=== PATIENT | male | born 1955 | race Caucasian/White ===

== ENCOUNTER → 2022-03-26 13:26 | Outpatient (CLI) | payer OTHER, SELFPAY ==
--- NOTE | ~2022-03-26 | XR_ITS ---
XR lumbar spine 2-3V DATE: 03/26/2022 13:57 INDICATION: Low back pain, sciatica TECHNIQUE: Standind AP, lateral, coned lateral lumbosacral COMPARISON: None FINDINGS: There is osteopenia. There is multi-level moderate to moderately severe degenerative disc disease of the lumbar and lumbos acral spine, most severe at L2-3. There is degenerative change at the apophyseal joints with no spondylolisthesis. The lumbar pedicles are intact. No fracture or bone destruction is detected. The included portions of the sacroiliac join ts are unremarkable. Abdominal aortic calcification without evidence of aneurysm. IMPRESSION: Osteopenia Multilevel degenerative disc disease and degenerative change at the apophyseal joints Reviewed, dictated and finalized at location A.
--- NOTE | ~2022-03-26 | XR_ITS ---
EXAM: XR knee LT 3V DATE: 03/26/2022 13:57 HISTORY: Chronic pain in left knee . COMPARISON: None available. FINDINGS: Normal mineralization. No fracture or dislocation. Loss of valgus alignment. Severe medial compartment narrowing, sclerosis, and subchondral cyst formation. Tricompartmental osteophytosis, se charity in the patellofemoral and medial compartments. Moderate volume joint fluid. IMPRESSION: Left knee osteoarthritis, severe in the patellofemoral and medial compartments. Moderate joint effusion. Reviewed, dictated and finalized at location K. IMPRESSION: Left knee osteoarthritis, severe in the patellofemoral and medial c ompartments. Moderate joint effusion.
== END ==
DX: M25.562 Pain in left knee (principal); G89.29 Other chronic pain; M85.88 Other specified disorders of bone density and structure, other site; M51.36 Other intervertebral disc degeneration, lumbar region; M17.12 Unilateral primary osteoarthritis, left knee; M25.462 Effusion, left knee
CPT/HCPCS: 72100; 73562

== ENCOUNTER 2025-01-21 12:09 | Emergency (ER) | payer BC, SELFPAY ==
--- NOTE | 2025-01-21 12:32 | ED.MALEGU ---
HPI - Male Genitourinary General Chief complaint: Urogenital-Male Stated complaint: Difficulty urinating-Hx enlarged prostate Time Seen by Provider: 01/21/25 12:30 Focused HPI: Patient is a 69-year-old male who presents to the ER with inability urinate. He reports the last time he was able to urinate was last night before he went to bed. Patient reports he has been trying to urinate since 3:00 a.m. this morning with no success. He endorses straining with urination in hopes to ?push the urine out but has only produced ?a few dribbles. Patient reports this morning he took an amoxicillin from a leftover previous prescription. He endorses a history of prostate issues and has a urologist. Patient endorses pain from bladder spasms at this time. GENERAL: Ill-appearing, well-nourished, and in mild distress d/t pain. HEAD: Normocephalic, atraumatic. CHEST: Clear to auscultation. ?No respiratory distress. HEART: Regular rate and rhythm.? NEURO: ?Alert and oriented x3. Patient screened in triage and initial orders placed.? ?Additional care and disposition to be based upon?diagnostic testing and treatment. Related Data Allergies Allergy/AdvReac Type Severity Reaction Status Date / Time peanut Allergy Unknown Swelling Ver[facility] 01/23/25 15:34 [facility] Past Medical History Medical History (Updated 01/24/25 @ 00:00 by Background Daemon) JARAMILLO (nonalcoholic steatohepatitis) Mixed hyperlipidemia Chronic GERD Calculus of ureter Benign essential hypertension Family History Family History (Updated 05/19/14 @ 07:13 by DOCTOR UNKNOWN) Father Family history of heart disease in male family member before age 55 Grandparent Family history of heart disease in male family member before age 55 Social History Social History Smoking status: Former smoker Second hand tobacco smoke exposure: Yes Smoking end date: 09/22/12 Alcohol intake: never Course Vital Signs Vital signs: Vital Signs Temperature 97.6 F 01/21/25 12:43 Pulse Rate 82 01/21/25 12:43 Respiratory Rate 16 01/21/25 12:43 Blood Pressure 202/125 H 01/21/25 12:43 Pulse Oximetry 98 01/21/25 12:43 Temperature 97.6 F 01/21/25 12:43 Pulse Rate 82 01/21/25 12:43 Respiratory Rate 16 01/21/25 12:43 Blood Pressure 202/125 H 01/21/25 12:43 Pulse Oximetry 98 01/21/25 12:43 MDM - Male Genitourinary Lab Data Labs: Lab Results 01/21/25 Range/Units 13:44 Urine Color Yellow (Yellow) Urine Appearance Clear (Clear) Urine pH 7.0 (5.0-9.0) Ur Specific [place] 1.016 (1.001-1.035) Urine Protein Trace (Negative) mg/dL Urine Glucose (UA) Negative (Negative) mg/dL Urine Ketones Negative (Negative) mg/dL Ur Blood (Man) 1+ H (Negative) Urine Nitrate Negative (Negative) Urine Bilirubin Negative (Negative) Urine Urobilinogen 0.2 (<2.0) mg/dL Leukocyte Esterase Rfl Negative (Negative) OMAR/UL Urine RBC 6-10 H (0-2) /hpf Urine WBC 0-5 (0-3) /hpf Ur Squamous Epith Cells None seen (Few) /hpf Urine Bacteria None seen /hpf Urine Casts 0-2 Discharge Plan Discharge Clinical Impression: BPH (benign prostatic hyperplasia), Acute retention of urine Patient Disposition: Home Condition: Improved Instructions: Antibiotic Form, Enlarged Prostate (BPH) (ED), Canseco Catheter Placement and Care (ED) Additional Instructions: follow up with urologist next week. Patient Language: Albanian Prescriptions: No Action Bystolic 5 mg tablet 5 mg PO DAILY Qty: 90 2RF Follow-up/Referrals: PHYSICIAN NOT ON STAFF,NONSTAFF [Non-Staff] -
[2025-01-21 12:43] VITALS: BP 202/125; PULSE 82; RESP 16; TEMP 36.4; O2SAT 98
[2025-01-21] MEDS: KETOROLAC (*BKC) 60 MG/2 ML VIAL IM (13:02)
--- NOTE | 2025-01-21 13:03 | PC.NURSE ---
patient to the bathroom at this time to attempt to provide a urine sample
--- NOTE | 2025-01-21 13:39 | ED.MALEGU ---
HPI - Male Genitourinary General Chief complaint: Urogenital-Male Stated complaint: Difficulty urinating-Hx enlarged prostate Time Seen by Provider: 01/21/25 12:30 History of Present Illness HPI Narrative: Pt not able to urinate since 0300 this morning. Pt eldon dysuiria or frequency prio to this. Pt on flomax but missed two days so not sure if that is cause. Pt has urologist in [facility]. Related Data Allergies Allergy/AdvReac Type Severity Reaction Status Date / Time peanut Allergy Unknown Swelling Verified 01/21/25 12:11 Review of Systems Review of Systems: All systems reviewed & are unremarkable except as noted in HPI and below PMFSH Family History Family History (Updated 05/19/14 @ 07:13 by DOCTOR UNKNOWN) Father Family history of heart disease in male family member before age 55 Grandparent Family history of heart disease in male family member before age 55 Social History Social History Smoking status: Former smoker Second hand tobacco smoke exposure: Yes Smoking end date: 09/22/12 Alcohol intake: never Exam Const: General: healthy appearing and no acute distress Nutritional Appearance: well nourished Limitations: no limitations Resp: Effort & Inspection: normal respiratory effort Auscultation: clear to auscultation bilaterally Cardio: Rate: regular rate Rhythm: regular rhythm GI: GI Palp: Yes Soft to palpation and Yes Tenderness to palpation present (GI) (suprapubis with distension) Auscultation: normal bowel sounds : General: Yes Bladder palpation abnormal distended and tender Course Vital Signs Vital signs: Vital Signs Temperature 97.6 F 01/21/25 12:43 Pulse Rate 82 01/21/25 12:43 Respiratory Rate 16 01/21/25 12:43 Blood Pressure 202/125 H 01/21/25 12:43 Pulse Oximetry 98 01/21/25 12:43 Temperature 97.6 F 01/21/25 12:43 Pulse Rate 82 01/21/25 12:43 Respiratory Rate 16 01/21/25 12:43 Blood Pressure 202/125 H 01/21/25 12:43 Pulse Oximetry 98 01/21/25 12:43 MDM - Male Genitourinary MDM Narrative Medical decision making narrative: pt unable to void. will attempt garcia. garcia placed easily per RN with good output ua neg. home with urology follow up next week. Lab Data Labs: Lab Results 01/21/25 Range/Units 13:44 Urine Color Yellow (Yellow) Urine Appearance Clear (Clear) Urine pH 7.0 (5.0-9.0) Ur Specific [place] 1.016 (1.001-1.035) Urine Protein Trace (Negative) mg/dL Urine Glucose (UA) Negative (Negative) mg/dL Urine Ketones Negative (Negative) mg/dL Ur Blood (Man) 1+ H (Negative) Urine Nitrate Negative (Negative) Urine Bilirubin Negative (Negative) Urine Urobilinogen 0.2 (<2.0) mg/dL Leukocyte Esterase Rfl Negative (Negative) OMAR/UL Urine RBC 6-10 H (0-2) /hpf Urine WBC 0-5 (0-3) /hpf Ur Squamous Epith Cells None seen (Few) /hpf Urine Bacteria None seen /hpf Urine Casts 0-2 Discharge Plan Discharge Clinical Impression: BPH (benign prostatic hyperplasia), Acute retention of urine Patient Disposition: Home Condition: Improved Instructions: Antibiotic Form, Enlarged Prostate (BPH) (ED), Garcia Catheter Placement and Care (ED) Additional Instructions: follow up with urologist next week. Patient Language: Italian Prescriptions: No Action Bystolic 5 mg tablet 5 mg PO DAILY Qty: 90 2RF Follow-up/Referrals: PHYSICIAN NOT ON STAFF,NONSTAFF [Non-Staff] -
[2025-01-21 13:59] LABS: Add Urine Microscopic? YES; Appearance Urine Clear (Clear); Bacteria Urine None Seen /hpf; Bilirubin Urine Negative (Negative); Blood Urine 1+ (Negative); Color Urine Yellow (Yellow); Glucose Urine UA Negative (Negative); Ketones Urine Negative (Negative); Leukocyte Esterase Ur Negative LEU/UL (Negative); Nitrate Urine Negative (Negative); Non Pathogenic Casts 0-2; Protein Urine Trace mg/dL (Negative); Specific Grav Ur 1.016 (1.001-1.035); Squamous Epithelial Cell Urine None Seen /hpf (Few); Urobilinogen Urine 0.2 mg/dL (<2.0); WBC Urine 0-5 /hpf (0-3)
--- OUTSIDE RECORDS SUMMARY | 2025-01-22 13:03 | XMS_ITS | Encounter Summary ---
Author Organization [facility] Healthcare Address [address] [place] [address] Care Team Providers Care Income Tax Preparer Name Role Phone No, Physician Primary Care Provider [phone] Heath Aleman Primary Care Provider [phone] Reason for Visit * Reason Onset Date Comments order 04/05/2024 Encounter Details Date Type Department Care Team (Late st Contact Info) Description 04/05/2024 Telephone [facility] [address] [facility] Advanced Medicine [address] [place] [address] Dianna Lutz MD [address] [facility] [address] [facility] [phone] [place] [address] order Social History Tobacco Use Types Packs/Day Years Used Date Smoking Tobacco: Never Smokeless Tobacco: Never AUDIT-C Answer Date Recorded Q1: How often do you have a drink containing alc ohol? Monthly or less 04/05/2024 Q2: How many drinks containi ng alcohol do you have on a typical day when you are drinking? 1 or 2 04/05/2024 Q3: How often do you have si x or more drinks on one occasion? Never 04/05/2024 Sex and Gender Information Value Date Recorded Sex Assigned at Not on file Legal Sex Male 4:30 AM PLUG WIRER Gender Identity Male 02/19/2024 3:53 AM CDT Sexual Orientation Straight 02/19/2024 3: 53 AM CDT documented as of this encounter Functional Status * Audit-C Score Answer Date of Assessment Author 1 04/05/2024 8:57 AM Js Sommer RN * Question Answer Date of Assessment Author Q1: How often do you have a drink containing alcohol? Monthly or less 04/05/2024 8:57 AM Mendy Sommer RN Q2: How many drinks containing alcohol do you have on a typical day when you are drinking? 1 or 2 04/05/2024 8:57 AM Mendy Sommer RN Q3: How often do you have six or more drinks on one occasion? Never 04/05/2024 8:57 AM Mendy Sommer RN documented as of this encounter Plan of Treatment Not on file documented as of this encounter Goals Goal Patient Goal Type Associated Problems Recent Progress Patient-Stated? Author CCM Chronic Pain Care Plan Chronic Care Management No change(09/07 12:35 PM PLUG WIRER) No Mendy Pope RN Note: Problem: Chronic Pain Goals: 1. Minimize further functional decline 2. Maximize quality of life 3. Control pain Strategies: - Activity/exercise program recommendation - Conservative stepwise pain medicine strategy with multi-disciplinary approach - Recommend healthy lifestyle strategies and compensatory methods as needed documented as of this encounter Visit Diagnoses Not on filedocumented in this encounter Care Teams Income Tax Preparer Relationship Specialty Start Date End Date No, Physician PCP - General 03/18/24 06/01/24 Heath Aleman PA [address] [address] PCP - General Emergency Medicine 06/02/24 documented as of this encounter
--- OUTSIDE RECORDS SUMMARY | 2025-01-22 13:03 | XMS_ITS | Encounter Summary ---
Author Organization [facility] Address [address] [place] [address] Care Team Providers Care Blow Molding Machine Operator Name Role Phone Manjinder Dixon MD Unavailable [phone] Fabian Major MD Unavailable Garfield Starr MD Unavailable [phone] Heath Aleman PA-C Primary Care Provider Reason for Visit * Reason Onset Date Comments MEDICATION REFILL 05/10/2022 Encounter Details Date Type Department Care Team (Late st Contact Info) Description 05/10/2022 Refill [facility] [address] [place] [address] Heath Aleman PA-C [address] [place] [phone] MEDICATION REFILL Social History Tobacco Use Types Packs/Day Years Used Date Smoking Tobacco: Former Cigars Smokeless Tobacco: Former Chew Alcohol Use Standard Drinks/Week Comments Yes 0 (1 standard drink = 0.6 oz pur e alcohol) social / rare AUDIT-C Answer Date Recorded Frequency of Alcohol Consumption Monthly or less 07/16/2019 Average Number of Drinks 1 or 2 019 Frequency of Binge Drinking Not on file 06/23 Sex and Gender Information Value Date Recorded Sex Assigned at Male 06/04/2021 7:34 PM CDT Legal Sex Male 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 hydroCHLOROthiazide (Hydrodiuril) 25 MG tablet 90 tablet 1 Sig: Take 1 (one) tablet by mouth once daily Allergies Allergen Reactions ??? Donald Inhibitors Cough ??? Peanuts [Peanut-Derived] Angioedema Last Refill:10/01/2021 Qty Dispense:90 # of Refills:1 Last OV:03/01/2022 Next OV:none documented in this encounter Plan of Treatment Upcoming Encounters Date Type Department Care Team (Late st Contact Info) Description 01/28/2025 10:30 AM CDT Office Visit [facility] - Urology [address] [place] [address] Rd [address] [place] [address] Kristen Goldberg APRN-DAY HABILITATION SPECIALIST [address] [facility] DEPT [place] [address] 01/28/2025 3:00 PM CDT Office Visit [facility] - Family Medicine [address] [place] [address], [place] [phone] Bina Luque APRN-DAY HABILITATION SPECIALIST [address] [place] [address] [place] [phone] 06/29/2025 10:30 AM CDT Office Visit [facility] - Urology [address] [place] [address] Rd [address] [place] [phone] Kristen Goldberg ED MANAGER-DAY HABILITATION SPECIALIST [address] [facility] DEPT [place] [address] documented as of this encounter Visit Diagnoses Diagnosis HTN (hypertension), benign Essential hypertension, benign documented in this encounter Care Teams Blow Molding Machine Operator Relationship Specialty Start Date End Date Heath Aleman PA-C [address] [facility] [address] [place] [address] PCP - General 11/04/19 [place] [address] [place] [address] 05/03/10 Fabian Major MD [address] [facility] [address] [place] [address] 05/03/10 Garfield Starr MD [address] [place] [address] 05/03/10 documented as of this encounter
--- OUTSIDE RECORDS SUMMARY | 2025-01-22 13:03 | XMS_ITS | Encounter Summary ---
Author Organization [facility] Address [address] [place] [place] [address] Care Team Providers Care Marine Structural Designer Name Role Phone Manjinder Dixon MD Unavailable [phone] Fabian Major MD Unavailable [phone] Garfield Starr MD Unavailable Heath Aleman PA-C Primary Care Provider Reason for Visit * Reason Onset Date Comments MEDICATION REFILL 04/14/2023 Encounter Details Date Type Department Care Team (Late st Contact Info) Description 04/14/2023 Refill [facility] - [facility] Medicine [address] [place] [address] Heath Aleman PA-C [address] [place] [phone] MEDICATION REFILL Social History Tobacco Use Types [...] PM CDT Legal Sex Male 6:35 AM BAND BUILDER Gender Identity Male 06/04/2021 7:34 PM CDT Sexual Orientation Straight 06/04/2021 7: 34 PM CDT documented as of this encounter Plan of Treatment Upcoming Encounters Date Type Department Care Team (Late st Contact Info) Description 01/28/2025 10:30 AM CDT Office Visit [facility]rology [facility] [address] [place] [phone] Kristen Goldberg, RENAL MEDICINE SPECIALIST-LINE SERVICE SUPERVISOR [address] [facility] [place] [place] [address] 01/28/2025 3:00 PM CDT Office Visit [facility] - [address], [facility] [place] [phone] Bina Luque, RENAL MEDICINE SPECIALIST-LINE SERVICE SUPERVISOR [facility] [phone] 06/29/2025 10:30 AM CDT Office Visit [facility] - Urology [facility] [address] [place] [phone] Kristen Goldberg, RENAL MEDICINE SPECIALIST-LINE SERVICE SUPERVISOR [address] [facility] [place] [place] [address] documented as of this encounter Visit Diagnoses Diagnosis Mixed hyperlipidemia documented in this encounter Care Teams Marine Structural Designer Relationship Specialty Start Date End Date Heath Aleman PA-C [address] [facility] [address] [place] [address] PCP - General 11/04/19 [place] [address] [place] [address] 05/03/10 Fabian Major MD [address] [address] 05/03/10 Garfield Starr MD [address] [place] [address] 05/03/10 documented as of this encounter
--- OUTSIDE RECORDS SUMMARY | 2025-01-22 13:04 | XMS_ITS | Referral Summary ---
Author Organization [facility] Address [address] [place] [address] Care Team Providers Care Catering Coordinator Name Role Phone Heath Aleman Primary Care Provider [phone] Encounters Date Type Department Care Team Description 01/19/2025 Orders Only [facility] [address] [place] [address] [address] [place] [phone] Narayan Mims MD Spinal stenosis of lumbar region with neurogenic claudication 01/19/2025 Orders Only [facility] [address] [place] [address] [address] [place] [phone] Narayan Mims MD Spinal stenosis of lumbar region with neurogenic claudication (Primary Dx) 01/19/2025 2:40 PM CDT Office Visit [facility] [address] [place] [address] Office [facility] [address] [phone] Narayan Mims MD Spinal stenosis of lumbar region with neurogenic claudication (Primary Dx) 01/12/2025 11:00 AM CDT - 01/12/2025 11:59 PM CDT Hospital Encounter [id number] [address] [place] [phone] Left knee pain, unspecified chronicity Discharge Disposition: Discharge to home or self care 01/12/2025 11:30 AM CDT Office Visit [facility] [address] [place] [address] Office [facility] [address] [phone] Federico Coelho MD Left knee pain, unspecified chronicity (Primary Dx); Hip pain, bilateral; Chronic pain of left knee; Primary osteoarthritis of left knee from Last 3 Months Allergies Active Allergy Reactions Criticality Noted Date Comments Donald Inhibitors Cough Low 07/16/2019 Peanut Medications famotidine (PEPCID) oral suspension 40 mg/5 mL Take 1 tablet by mouth as directed Active sbpvrfxx-tvj-wuz anatoliy sulfate 4.5 mg iron powder in packet Take 1 tablet by mouth daily Active omega-3 fatty acids-fish oil 300-1,000 mg capsule Take 1 capsule (1 g total) by mouth as directed Active hydroCHLOROthiaz dorota (HYDRODIURIL) 25 mg tablet Take 1 tablet (25 mg total) by mouth daily Active atenoloL (TENORMIN) 50 mg tablet Take 1 tablet (50 mg total) by mouth daily Active betamethasone dipropionate (DEL-BETA) 0.05 % cream Apply topically 2 (two) times a day 1 Active rosuvastatin (CRESTOR) 10 mg tablet Take 1 tablet (10 mg total) by mouth daily Active tamsulosin (FLOMAX) 0.4 mg extended release capsule TAKE 1 CAPSULE BY MOUTH ONCE DAILY AT THE SAME TIME EVERY DAY AFTER A MEAL Active meloxicam (MOBIC) 15 mg tabletIndication s:osteoarthrtis Take 1 tablet (15 mg total) by mouth daily 30 tablet 4 Active Additional Information Patient not taking.Reported on 09/07/2024 acetaminophen-as pirin-caffeine (EXCEDRIN MIGRAINE) 250-250-65 mg per tablet Take 6 tablets by mouth every 6 (six) hours as needed Active Active Problems Problem Noted Date Diagnosed Date Spinal stenosis of lumbar re gion with neurogenic claudication 05/28/2024 Spondylolisthesis 04/05/2024 Benign prostatic hyperplasia 05/31/2009 Overview (04/05/2024): IMO Update 03/22/2017 Elevated PSA 05/31/2009 Essential hypertension 05/29/2009 Overview (04/05/2024): DOS (diffuse esophageal spasm) 05/29/2009 GERD (gastroesophageal reflux disease) 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 Monthly or less 07/05/2024 Q2: How many drinks containi ng alcohol do you have on a typical day when you are drinking? 1 or 2 07/05/2024 Q3: How often do you have si x or more drinks on one occasion? Never 07/05/2024 Hunger Vital Sign Answer Date Recorded Within the past 12 months, y ou worried that your food would run out before you got the money to buy more. Never true 05/28/20 24 Within the past 12 months, t he food you bought just didn't last and you didn't have money to get more. Never true 05/28/2024 Sex and Gender Information Value Date Recorded Sex Assigned at Not on file Legal Sex Male 4:30 AM [employer] Gender Identity Male 02/19/2024 3:53 AM CDT Sexual Orientation Straight 02/19/2024 3: 53 AM CDT Last Filed Vital Signs Vital Sign Reading Time Taken Comments Blood Pressure 146/81 09/07/2024 1:46 PM [employer] Pulse 59 09/07/2024 1:46 PM [employer] Temperature 36.5 C (97.7 F) 09/07/2024 12:33 PM [employer] Respiratory Rate 18 09/07/2024 1:46 PM [employer] Oxygen Saturation 96% 09/07/2024 1:46 PM [employer] Inhaled Oxygen Concentration - - Weight 108.9 kg (240 lb) 01/19/2025 2:48 PM CDT Height 175.3 cm (5' 9 ) 01/19/2025 2:48 PM CDT Body Mass Index 35.44 01/19/2025 2:48 PM CDT Plan of Treatment Not on file Goals Goal Patient Goal Type Associated Problems Recent Progress Patient-Stated? Author CCM Chronic Pain Care Plan Chronic Care Management No change(09/07 12:35 PM [employer]) Mendy Alfaro RN Note: Problem: Chronic Pain Goals: 1. Minimize further functional decline 2. Maximize quality of life 3. Control pain Strategies: - Activity/exercise program recommendation - Conservative stepwise pain medicine strategy with multi-disciplinary approach - Recommend healthy lifestyle strategies and compensatory methods as needed Procedures Procedure Name Priority Date/Time Associated Diagnosis Comments XR KNEE LEFT 4 OR MORE VIEWS Schedule Routine, Read Routine (OP Routine) 01/12/2025 11:18 AM CDT Left knee pain, unspecified chronicity from Last 3 Months Results * XR Knee Left 4 or More Views (01/12/2025 11:18 AM CDT) Anatomical Region Laterality Modality Lower Extremities, Knee Left Computed Radiography 01/12/2025 11:3 9 AM CDT Impressions 01/12/2025 11:39 AM CDT 1. Severe medial compartment predominant tricompartmental left knee osteoarthritis. Electronically signed by: Modesto Knapp M.D. Narrative 01/12/2025 11:39 AM CDT EXAMINATION: XR KNEE LEFT 4 OR MORE VIEWS HISTORY: left knee pain FINDINGS: 4 view examination of the left knee is read without comparison. There is severe medial compartment predominant tricompartmental osteoarthritis. Small joint effusion. No fracture or dislocation. There are intra-articular loose bodies in the posterior aspect of the joint. Atherosclerotic vascular calcifications. Procedure Note Modesto Queen MD - 01/12/2025 EXAMINATION: XR KNEE LEFT 4 OR MORE VIEWS HISTORY: left knee pain FINDINGS: 4 view examination of the left knee is read without comparison. There is severe medial compartment predominant tricompartmental osteoarthritis. Small joint effusion. No fracture or dislocation. There are intra-articular loose bodies in the posterior aspect of the joint. Atherosclerotic vascular calcifications. IMPRESSION: 1. Severe medial compartment predominant tricompartmental left knee osteoarthritis. Electronically signed by: Sam Shaikh.D. Federico Coelho MD IMG XR PROCEDURES Final R esult from Last 3 Months Insurance ANTHEM ACCESS CHOICE ANTHEM ACCESS CHOICE Care Teams Catering Coordinator Relationship Specialty Start Date End Date Heath Aleman PA [address] [place] [address] PCP - General Emergency Medicine 06/02/24
--- OUTSIDE RECORDS SUMMARY | 2025-01-22 13:04 | XMS_ITS | Clinical Summary ---
Author Organization [facility] Address [address] [place] [address] Care Team Providers Care Coil Wrapper Name Role Phone Manjinder Dixon MD Unavailable [phone] Fabian Major MD Unavailable [phone] Garfield Starr MD Unavailable [phone] Heath Aleman PA-C Primary Care Provider Source Comments [facility],non-owned Affiliates and Associated Physician Practices is amultiple site organization consisting of ambulatory clinics and hospital sitesin [place], [place], [place] and [place]. This disclosure is being madepursuant to the Care Everywhere program and may not contain all information available regarding this patient. Last updated 18.[facility] Allergies Active Allergy Reactions Criticality Noted Date Comments Donald Inhibitors Cough 07/16/2019 Peanut-Derived Angioedema High 11/04/2019 Medications * Be aware that medications may not be up to date on this document. Alwaysverify current medications with the patient. [place]-3 Fatty Acids (FISH OIL PO) Take 1 capsule by mouth as directed Active Famotidine (PEPCID PO) Take 1 tablet by mouth as directed Active betamethasone dipropionate (DIPROSONE) 0.05 % creamIndications: Flexural eczema Apply to affected area 2 times daily 15 g 2 021 Active Ferrous Sulfate (IRON PO) Take 1 tablet by mouth once daily Active atenolol (Tenormin) 50 MG tabletIndications :HTN (hypertension), benign Take 1 (one) tablet by mouth once daily 90 tablet 4 024 Active hydroCHLOROthiazi de (Hydrodiuril) 25 MG tabletIndications :HTN (hypertension), benign Take 1 (one) tablet by mouth once daily 90 tablet 4 024 Active rosuvastatin (Crestor) 10 MG tabletIndications :Mixed hyperlipidemia Take 1 (one) tablet by mouth once daily 90 tablet 4 024 Active semaglutide (Wegovy) 0.25 MG/0.5ML penIndications:BM I 32.0-32.9,adult,H TN (hypertension), benign Inject 0.25 (one-quarter) mg subcutaneously every 7 days 2 mL 024 Active tamsulosin (Flomax) 0.4 MG capsule TAKE 1 CAPSULE BY MOUTH ONCE DAILY AT THE SAME TIME EVERY DAY AFTER A MEAL 30 capsule 025 Active tamsulosin (Flomax) 0.4 MG capsule TAKE 1 CAPSULE BY MOUTH ONCE DAILY AT THE SAME TIME EVERY DAY AFTER A MEAL 30 capsule 025 2024 Discontinued Active Problems Problem Noted Date Diagnosed Date Elevated PSA 05/31/2009 Benign prostatic hyperplasia 05/31/2009 Overview (03/15/2017): IMO Update 03/22/2017 Mixed hyperlipidemia 05/29/2009 HDL lipoprotein deficiency 05/29/2009 Essential hypertension 05/29/2009 Overview (06/22/2015): GERD (gastroesophageal reflux disease) 9 DOS (diffuse esophageal spasm) 05/29/2009 Encounters Date Type Department Care Team Description 01/21/2025 Telephone [facility] [address] [facility] [facility] [place] [phone] Wilma Salazar, RN Urinary Retention 01/10/2025 Refill [facility] [address] [place] [phone] Kristen Goldberg APRN-TEMPORARY OFFICE ASSISTANT Refill Request 12/10/2024 Refill [facility] [address] [place] [address] Kristen Goldberg CONCRETE PRODUCTS DISPATCHER-TEMPORARY OFFICE ASSISTANT Refill Request 12/08/2024 Travel 11/08/2024 Refill [facility] [address] [place] [address] Kristen Goldberg CONCRETE PRODUCTS DISPATCHER-TEMPORARY OFFICE ASSISTANT Refill Request from Last 3 Months Immunizations Immunization Administration Dates Next Due Covid Healionics primary monoval ent 12+ yr 0.3mL Purple cap 08/20/2021,12/14/2020,11/16/2020 TDAP (7yrs+) 11/04/2016 TDAP, HISTORIC VACCINE 08/16/2022 Zoster Hzv Vacc Recombinant Inj Im 02/08/2023, Family History Medical History Relation Name Comments CAD (Coronary Artery Disease) Father Hyperlipidemia Father CAD (Coronary Artery Disease) Maternal Grandfather Hyperlipidemia Mother Hypertension Mother Lymphoma Mother CAD (Coronary Artery Disease) Paternal Grandfather Brain Tumor Sister acoustic neurom a Relation Name Status Comments Brother 1 Alive Brother 2 Alive Father Maternal Grandfather Maternal Grandmother Mother Paternal Grandfather Paternal Grandmother Sister Alive Social History Tobacco Use Types Packs/Day Years Used Date Smoking Tobacco: Former Cigars Smokeless Tobacco: Former Chew Tobacco Cessation:Counseling Given: Not Answered Alcohol Use Standard Drinks/Week Comments Yes 0 (1 standard drink = 0.6 oz pur e alcohol) social / rare AUDIT-C Answer Date Recorded Frequency of Alcohol Consumption Monthly or less 07/16/2019 Average Number of Drinks 1 or 2 019 Frequency of Binge Drinking Not on file 06/23 PHQ-2 Answer Date Recorded Patient Health Questionnaire-2 Score 0 01/03/2025 Sex and Gender Information Value Date Recorded Sex Assigned at Male 06/04/2021 7:34 PM CDT Legal Sex Male 6:35 AM MICROBIOLOGICAL LABORATORY TECHNICIAN Gender Identity Male 06/04/2021 7:34 PM CDT Sexual Orientation Straight 06/04/2021 7: 34 PM CDT Last Filed Vital Signs Vital Sign Reading Time Taken Comments Blood Pressure 130/74 10/21/2024 11:43 AM MICROBIOLOGICAL LABORATORY TECHNICIAN Pulse 70 10/21/2024 11:43 AM MICROBIOLOGICAL LABORATORY TECHNICIAN Temperature 37.1 C (98.7 F) 10/21/2024 11:43 AM MICROBIOLOGICAL LABORATORY TECHNICIAN Respiratory Rate 16 04/21/2024 8:12 AM CDT Oxygen Saturation 93% 10/21/2024 11: 43 AM MICROBIOLOGICAL LABORATORY TECHNICIAN Inhaled Oxygen Concentration - - Weight 109.5 kg (241 lb 6.4 oz) 025 11:43 AM MICROBIOLOGICAL LABORATORY TECHNICIAN Height 175.3 cm (5' 9 ) 10/21/2024 11:4 3 AM MICROBIOLOGICAL LABORATORY TECHNICIAN Body Mass Index 35.65 10/21/2024 11:43 AM MICROBIOLOGICAL LABORATORY TECHNICIAN Plan of Treatment Upcoming Encounters Date Type Department Care Team (Late st Contact Info) Description 01/28/2025 10:30 AM CDT Office Visit [facility] - [facility] [address] [place] [address] Kristen Goldberg CONCRETE PRODUCTS DISPATCHER-TEMPORARY OFFICE ASSISTANT [facility] [facility] [place] [address] 01/28/2025 3:00 PM CDT [facility] [address] [place] [phone] Bina Luque APRN-TEMPORARY OFFICE ASSISTANT [address] [place] [phone] 06/29/2025 10:30 AM CDT Office Visit [facility] [address] [place] [phone] Kristen Goldberg, CONCRETE PRODUCTS DISPATCHER-TEMPORARY OFFICE ASSISTANT [address] [facility] [place] [address] Health Maintenance Due Date Last Done Comments COLOGUARD (AGES 45-75) - COLON CA SCREENING 1955 CT COLONOGRAPHY - COLON CA SCREENING 1955 FIT - COLON CA SCREENING 1955 FLEX SIG - COLON CA SCREENING 1955 PNEUMOCOCCAL VACCINE 50+ (1 of 1 - PCV) 2005 COVID-19 VACCINE (4 - season) 2024 08/20/2021, 12/14/2020, 11/16/2020 DEPRESSION SCREENING 09/22/2024 06/11/2024, 05/06/2023, 08/25/2020 INFLUENZA VACCINE (Season Ended) 2025 SCREENING FOR DIABETES 05/21/2026 , 05/21/2023, 03/14/2022, Additional history exists Respiratory Syncytial Virus (RSV) Vaccine Pt: or over 60 yrs (1 - 1-dose 75+ series) 2030 COLON MONITORING 10/02/2030 10/02/2020, 10/02/2020 COLONOSCOPY - COLON CA SCREENING 10/02/2030 10/02/2020, 10/02/2020, 03/24/2008 Colorectal Cancer Screening 10/02/2030 DTAP/TDAP/TD VACCINES (3 - Td or Tdap) 08/16/2032 08/16/2022, 11/04/2016 HEPATITIS C SCREENING Completed 04/18/2021, 021 ZOSTER VACCINE Completed 02/08/2023, 08/16/2022 AAA SCREENING Completed 05/30/2023 HEPATITIS B VACCINE Aged Out No longe r eligible based on patient's age to complete this topic HIB VACCINE Aged Out No longer eligi ble based on patient's age to complete this topic HPV VACCINE Aged Out No longer eligi ble based on patient's age to complete this topic MENINGOCOCCAL (Group B) VACCINE SHARED DECISION-MAKING Aged Out No longer eligible based on patient's age to complete this topic MENINGOCOCCAL GROUPS A/C/Y/W VACCINE Aged Out No longer eligible based on patient's age to complete this topic Procedures Procedure Name Priority Date/Time Associated Diagnosis Comments US AAA SCREENING Routine 05/30/2023 9:4 5 AM CDT Encounter for abdominal aortic aneurysm (AAA) screening COMPREHENSIVE METABOLIC PANEL Routine 05/21/2023 9:52 AM CDT HTN (hypertension), benign HEPATITIS C AB W/RFLX TO HCV RNA QN PCR 04/18/2021 3:37 PM CDT ENDOSCOPY, COLON, SCREENING Routine 10/02/2020 7:38 AM MICROBIOLOGICAL LABORATORY TECHNICIAN from Last 3 Months or Most Recently Relevant to Health Maintenance Results * US AAA SCREENING (05/30/2023 9:45 AM CDT) Anatomical Region Laterality Modality Abdomen Ultrasound 05/30/2023 9:29 AM CDT Impressions 05/30/2023 10:56 AM CDT IMPRESSION: No evidence of abdominal aortic aneurysm. > Dictated by Connie Claros MD (vice president risk management). IStephan have personally reviewed and interpreted this examination/study. > Interpreting Provider: Stephan Bragg on 05/30/2023 10:56 AM Narrative 05/30/2023 10:56 AM CDT PROCEDURE: US AAA SCREENING DATE/TIME OF EXAM: 05/30/2023 8:55 AM CLINICAL INFORMATION: None relevant/not provided if blank. Indication: Z13.6: Encounter for abdominal aortic aneurysm (AAA) screening COMPARISON: None. FINDINGS: Proximal abdominal aorta: 1.8 cm AP x 2.5 cm transverse Mid abdominal aorta: 1.2 x 2.1 cm Distal abdominal aorta: 1.4 x 1.7 cm Right common iliac artery: 1.1 x 1.2 mm Left common iliac artery: 1.2 x 1.2 mm There is no evidence of abdominal aortic or common iliac artery aneurysm. The abdominal aorta and common iliac arteries are patent. Hyperechoic foci in the abdominal aorta and proximal iliac arteries are not observed. Procedure Note Stephan Bragg MD - 05/30/2023 PROCEDURE: US AAA SCREENING DATE/TIME OF EXAM: 05/30/2023 8:55 AM CLINICAL INFORMATION: None relevant/not provided if blank. Indication: Z13.6: Encounter for abdominal aortic aneurysm (AAA)screening COMPARISON: None. FINDINGS: Proximal abdominal aorta: 1.8 cm AP x 2.5 cm transverse Mid abdominal aorta: 1.2 x 2.1 cm Distal abdominal aorta: 1.4 x 1.7 cm Right common iliac artery: 1.1 x 1.2 mm Left common iliac artery: 1.2 x 1.2 mm There is no evidence of abdominal aortic or common iliac arteryaneurysm. The abdominal aorta and common iliac arteries are patent. Hyperechoicfoci in the abdominal aorta and proximal iliac arteries are not observed. IMPRESSION: No evidence of abdominal aortic aneurysm. > Dictated by Connie Claros MD (vice president risk management). I, Stephan Bragg have personally reviewed and interpreted this examination/study. > Interpreting Provider: Stephan Bragg on 05/30/2023 10:56 AM us Heath Aleman PA-C US ORDERABLES Final Result * (ABNORMAL) COMPREHENSIVE METABOLIC PANEL (05/21/2023 9:52 AM CDT) Glucose 111(H) 65 - 99 mg/dL [facility] Comment: Fasting reference interval For someone without known diabetes, a glucose value between 100 and 125 mg/dL is consistent with prediabetes and should be confirmed with a follow-up test. BUN 18 7 - 25 mg/dL [facility] Creatinine 1.46(H) 0.70 - 1.35 mg/dL [facility] eGFR by Cystatin C 52(L) > OR = 60 mL/min/1.7 3m2 [facility] BUN/Creatinine Ratio 12 6 - 22 (calc) [facility] Sodium 141 135 - 146 mmol/L [facility] Potassium 4.2 3.5 - 5.3 mmol/L [facility] Chloride 101 98 - 110 mmol/L [facility] CO2 33(H) 20 - 32 mmol/L [facility] Calcium 10.0 8.6 - 10.3 mg/dL [facility] Protein Total 7.0 6.1 - 8.1 g/dL [facility] Albumin 4.6 3.6 - 5.1 g/dL [facility] Globulin Total 2.4 1.9 - 3.7 g/dL (calc) [facility] Albumin/Globulin Ratio 1.9 1.0 - 2.5 (calc) [facility] Bilirubin Total 0.5 0.2 - 1.2 mg/dL [facility] Alkaline Phosphatase 61 35 - 144 U/L [facility] AST 39(H) 10 - 35 U/L [facility] ALT 56(H) 9 - 46 U/L [facility] Comment: Test Performed at: [facility] [address] [facility] [place] [address] SELWYN MCKENZIE MD Blood BLOOD SPECIMEN / Unknown 05/21/2023 9:52 AM CDT 05/21/2023 9:55 AM CDT Heath Aleman PA-C LAB - CHEMISTRY ORDERA BLES Final Result Performing Organization Address [facility] de Phone Number [facility] [address] [place] [address] * HEPATITIS C AB W/RFLX TO HCV RNA QN PCR (04/18/2021 3:37 PM CDT) Hepatitis C Antibody NON-REACTI VE NON-REACT MACKENZIE [facility] Signal to Cut-Off 0.02 <1.00 [facility] Comment: HCV antibody was non-reactive. There is no laboratory evidence of HCV infection. In most cases, no further action is required. However, if recent HCV exposure is suspected, a test for HCV RNA (test code 87438) is suggested. For additional information please refer to http://education.Green Clean/faq/YTK02p0 (This link is being provided for informational/ educational purposes only.) REPORT COMMENT: FASTING:YES Test Performed at: [facility] [address] [place] [address] KANG LAYTON DO,MPH 04/18/2021 3:37 PM CDT 04/18/2021 3:38 PM CDT Heath Aleman PA-C LAB - CHEMISTRY ORDERA BLES Final Result Performing Organization Address [facility] Co de Phone Number [facility] [address] [place] [address] * ENDOSCOPY, COLON, SCREENING (10/02/2020 7:38 AM MICROBIOLOGICAL LABORATORY TECHNICIAN) Report Endoscopy POC Endoscopy Department Report _ Patient Name: Kang Jones Procedure Date: 10/02/2020 7:38 AM Date of : 1955 Classification: Outpatient Gender: Male Ethnicity: Not or Race: White _ Providers: Ramana Barry MD Referring MD: Richard Hendrix MD Procedure: Colonoscopy Indications: Screening for colorectal malignant neoplasm Medications: See the Anesthesia note for documentation of the administered medications Patient Profile: 65M w/ limited PMH, here for CRCS. Description of Procedure: Pre-Anesthesia Assessment: Prior to the procedure, a History and Physical was performed, and patient medications and allergies were reviewed. The patient's tolerance of previous anesthesia was also reviewed. The risks and benefits of the procedure and the sedation options and risks were discussed with the patient. All questions were answered, and informed consent was obtained. Prior Anticoagulants: The patient has taken no previous anticoagulant or antiplatelet agents. ASA Grade Assessment: II - A patient with mild systemic disease. After reviewing the risks and benefits, the patient was deemed in satisfactory condition to undergo the procedure. After I obtained informed consent, the scope was passed under direct vision. Throughout the procedure, the patient's blood pressure, pulse, and oxygen saturations were monitored continuously. The [id number]-[id number] was introduced through the anus and advanced to the cecum, identified by appendiceal orifice and ileocecal valve. The colonoscopy was performed without difficulty. The patient tolerated the procedure well. The quality of the bowel preparation was evaluated using the BBPS ([place] Bowel Preparation Scale) with scores of: Right Colon = 2 (minor amount of residual staining, small fragments of stool and/or opaque liquid, but mucosa seen well), Transverse Colon = 3 (entire mucosa seen well with no residual staining, small fragments of stool or opaque liquid) and Left Colon = 3 (entire mucosa seen well with no residual staining, small fragments of stool or opaque liquid). The total BBPS score equals 8. The quality of the bowel preparation was fair. Findings: Skin tags and non-bleeding external hemorrhoids were found on perianal exam. Medium sized non-bleeding internal hemorrhoids were found during retroflexion. The exam was otherwise without abnormality through to the cecum. Estimated Blood Loss: Estimated blood loss: None. Complications: No immediate complications. Impression: - Preparation of the colon was fair. - Perianal skin tags, medium sized non-bleeding external and internal hemorrhoids present. - The examination was otherwise normal. Moderate Sedation: MAC Recommendation: - Resume previous diet. - Continue present medications. - Consider repeat Colonoscopy in 5 years for surveillance given fair prep quality. - Patient has a contact number available for emergencies. The signs and symptoms of potential delayed complications were discussed with the patient. Return to normal activities tomorrow. Written discharge instructions were provided to the patient. Attending Participation: I personally performed the entire procedure. Procedure Code(s): --- Professional --- G0121, Colorectal cancer screening; colonoscopy on individual not meeting criteria for high risk Diagnosis Code(s): --- Professional --- Z12.11, Encounter for screening for malignant neoplasm of colon K64.8, Other hemorrhoids K64.4, Residual hemorrhoidal skin tags CPT copyright 2019 [employer]. All rights reserved. The codes documented in this report are preliminary and upon emt intermediate review may be revised to meet current compliance requirements. Ramana Barry MD 10/02/2020 8:37:23 AM Note Initiated On: 10/02/2020 7:38 AM Number of Addenda: [address] [address] [facility] 10/02/2020 7:38 AM MICROBIOLOGICAL LABORATORY TECHNICIAN us Ramana Barry MD GI PROCEDURE ORDERAB LES Edited Result - Final [facility] from Last 3 Months or Most Recently Relevant to Health Maintenance Care Teams Coil Wrapper Relationship Specialty Start Date End Date Heath Aleman PA-C [address] [facility] [address] [place] [phone] PCP - General 11/04/19 [place] [address] [place] [address] 05/03/10 Fabian Major MD [address] [facility] [address] [place] [address] 05/03/10 Garfield Starr MD [address] [place] [address] 05/03/10
--- OUTSIDE RECORDS SUMMARY | 2025-01-22 13:04 | XMS_ITS | Clinical Summary ---
Author Organization [facility] Address [address] [place] [address] Care Team Providers Care Adjunct Philosophy Faculty Name Role Phone Heath Aleman Primary Care Provider [phone] Allergies Active Allergy Reactions Criticality Noted Date Comments Donald Inhibitors Cough Low 07/16/2019 Peanut Medications famotidine (PEPCID) oral suspension 40 mg/5 mL Take 1 tablet by mouth as directed Active oporljrd-azh-syd anatoliy sulfate 4.5 mg iron powder in [...] HDL lipoprotein deficiency 05/29/2009 Mixed hyperlipidemia 05/29/2009 Encounters Date Type Department Care Team Description 01/19/2025 2:40 PM CDT Office Visit [facility] [address] [place] [address] [phone] Narayan Mims MD Spinal stenosis of lumbar region with neurogenic claudication (Primary Dx) 01/19/2025 Orders Only [facility] [address] [place] [phone] Narayan Mims MD Spinal stenosis of lumbar region with neurogenic claudication 01/19/2025 Orders Only [facility] [address] [place] [phone] Narayan Mims MD Spinal stenosis of lumbar region with neurogenic claudication (Primary Dx) 01/12/2025 11:30 AM CDT Office Visit [facility] [address] [place] [phone] Federico Coelho MD Left knee pain, unspecified chronicity (Primary Dx); Hip pain, bilateral; Chronic pain of left knee; Primary osteoarthritis of left knee 01/12/2025 11:00 AM CDT - 01/12/2025 11:59 PM CDT Hospital Encounter [id number] [address] [facility] [address] [place] [phone] Left knee pain, unspecified chronicity Discharge Disposition: Discharge to home or self care from Last 3 Months Immunizations Immunization Administration Dates Next Due Pfizer SARS-CoV-2 Monovalent Vaccination (12+ Yrs) PURPLE 12/14/2020,11/16/2020 Surgical History Surgery Date Site/Laterality Comments HAND SURGERY 09/22/1980 - 09/21/1981 Left Medical History Medical History Date Comments Hypertension Acid reflux Kidney stones Social History Tobacco Use Types Packs/Day Years [...] on file Legal Sex Male 4:30 AM WALLPAPER SCRAPER Gender Identity Male 02/19/2024 3:53 AM CDT Sexual Orientation Straight 02/19/2024 3: 53 AM CDT Obstetrics History Last Filed Vital Signs Vital Sign Reading Time Taken Comments Blood Pressure 146/81 09/07/2024 1:46 PM WALLPAPER SCRAPER Pulse 59 09/07/2024 1:46 PM WALLPAPER SCRAPER Temperature 36.5 C (97.7 F) 09/07/2024 12:33 PM WALLPAPER SCRAPER Respiratory Rate 18 09/07/2024 1:46 PM WALLPAPER SCRAPER Oxygen Saturation 96% 09/07/2024 1:46 PM WALLPAPER SCRAPER Inhaled Oxygen Concentration - - Weight 108.9 kg (240 lb) 01/19/2025 2:48 PM CDT Height 175.3 cm (5' 9 ) 01/19/2025 2:48 PM CDT Body Mass Index 35.44 01/19/2025 2:48 PM CDT Plan of Treatment Health Maintenance Due Date Last Done Comments Colon Cancer Screening-Colonoscopy 1955 Depression Screening 1955 Fall Risk Assessment 1955 Hepatitis C Screening 1955 Prostate Cancer Screening-PSA 1955 Hepatitis B Screening 1973 Pneumococcal vaccine 65+ (1 of 1 - PCV) 2005 Well Visit 65+ 2020 Covid-19 Vaccine ( - 2023- season) 2024 08/20/2021, 12/14/2020, 11/16/2020 Influenza Vaccine (Season Ended) 2025 DTaP/Tdap/Td Vaccine (3 - Td or Tdap) 08/16/2032, 11/04/2016 Zoster Vaccine Completed 02/08/2023, 08/16/2022 Goals Goal Patient Goal Type Associated Problems Recent Progress Patient-Stated? Author CCM Chronic Pain Care Plan Chronic Care Management No change(09/07 12:35 PM WALLPAPER SCRAPER) No Mendy Pope, [place] Note: Problem: Chronic Pain Goals: 1. Minimize [...] osteoarthritis. Electronically signed by: Modesto Knapp M.D. Federico Coelho MD IMG XR PROCEDURES Final R esult from Last 3 Months Insurance [employer] Care Teams Adjunct Philosophy Faculty Relationship Specialty Start Date End Date Heath Aleman PA [address] [facility] [address] [place] [address] PCP - General Emergency Medicine 06/02/24
--- OUTSIDE RECORDS SUMMARY | 2025-01-22 14:13 | XMS_ITS | Referral Summary ---
Author Organization [facility] Address [address] [place] [address] Care Team Providers Care Senior Infrastructure Architect Name Role Phone Heath Aleman Primary Care Provider [phone] Encounters Date Type Department Care Team Description 01/19/2025 Orders Only [facility] Neurosurgery [address] [place] [address] [place] [phone] Narayan Mims MD Spinal stenosis of lumbar region with neurogenic claudication 01/19/2025 Orders Only [facility] Neurosurgery [address] [place] [address] [place] [phone] Narayan Mims MD Spinal stenosis of lumbar region with neurogenic claudication (Primary Dx) 01/19/2025 2:40 PM CDT Office Visit [facility] Neurosurgery [address] [place] [address] Office [facility] [address] [address] Narayan Mims MD Spinal stenosis of lumbar region with neurogenic claudication (Primary Dx) 01/12/2025 11:00 AM CDT - 01/12/2025 11:59 PM CDT Hospital Encounter [facility] Rad[facility] [address] [place] [phone] Left knee pain, unspecified chronicity Discharge Disposition: Discharge to home or self care 01/12/2025 11:30 AM CDT Office Visit [facility] Orthopaedic Surgery [address] [place] [address] Office [facility] [address] [phone] Federico Coelho MD Left knee pain, unspecified chronicity (Primary Dx); Hip pain, bilateral; Chronic pain of left knee; Primary osteoarthritis of left knee from Last 3 Months Allergies Active Allergy Reactions Criticality Noted Date Comments Donald Inhibitors Cough Low 07/16/2019 Peanut Medications famotidine (PEPCID) oral suspension 40 mg/5 mL Take 1 tablet by mouth as directed Active hnwgylli-tio-jvk anatoliy sulfate 4.5 mg iron powder in [...] on file Legal Sex Male 4:30 AM FOREIGN STUDENT ADVISER TEACHER Gender Identity Male 02/19/2024 3:53 AM CDT Sexual Orientation Straight 02/19/2024 3: 53 AM CDT Last Filed Vital Signs Vital Sign Reading Time Taken Comments Blood Pressure 146/81 09/07/2024 1:46 PM FOREIGN STUDENT ADVISER TEACHER Pulse 59 09/07/2024 1:46 PM FOREIGN STUDENT ADVISER TEACHER Temperature 36.5 C (97.7 F) 09/07/2024 12:33 PM FOREIGN STUDENT ADVISER TEACHER Respiratory Rate 18 09/07/2024 1:46 PM FOREIGN STUDENT ADVISER TEACHER Oxygen Saturation 96% 09/07/2024 1:46 PM FOREIGN STUDENT ADVISER TEACHER Inhaled Oxygen Concentration - - Weight 108.9 kg (240 lb) 01/19/2025 2:48 PM CDT Height 175.3 cm (5' 9 ) 01/19/2025 2:48 PM CDT Body Mass Index 35.44 01/19/2025 2:48 PM CDT Plan of Treatment Not on file Goals Goal Patient Goal Type Associated Problems Recent Progress Patient-Stated? Author CCM Chronic Pain Care Plan Chronic Care Management No change(09/07 12:35 PM FOREIGN STUDENT ADVISER TEACHER) Mendy Alfaro RN Note: Problem: Chronic Pain [...] ACCESS CHOICE ANTHEM ACCESS CHOICE Care Teams Senior Infrastructure Architect Relationship Specialty Start Date End Date Heath Aleman PA [address] [place] [address] PCP - General Emergency Medicine 06/02/24
--- OUTSIDE RECORDS SUMMARY | 2025-01-22 14:13 | XMS_ITS | Clinical Summary ---
Author Organization [facility] Address [address] [place] [place] [address] Care Team Providers Care Resort Keeper Name Role Phone Manjinder Dixon MD Unavailable [phone] Fabian Major MD Unavailable [phone] Garfield Starr MD Unavailable [phone] Heath Aleman PA-C Primary Care Provider Source Comments [facility],non-owned Affiliates and Associated Physician Practices is amultiple site organization consisting of ambulatory clinics and hospital sitesin [place], [place], [place] and [place]. This disclosure is being madepursuant to the Care Everywhere program and may not contain all information available regarding this patient. Last updated 18.[facility] Allergies Active Allergy Reactions Criticality Noted Date Comments Donald Inhibitors Cough 07/16/2019 Peanut-Derived Angioedema High 11/04/2019 Medications * Be aware that medications may not be up to date on this document. Alwaysverify current medications with the patient. Statham-3 Fatty Acids (FISH OIL PO) Take 1 [...] Telephone [facility] [address] [facility], [place] [phone] Wilma Salazar, RN Urinary Retention 01/10/2025 Refill [facility] [address] [place] [phone] Kristen Goldberg APRN-SKIING TEACHER Refill Request 12/10/2024 Refill [facility] [address] [place] [address] Kristen Goldberg VIDEO GAME SCRIPT WRITER-SKIING TEACHER Refill Request 12/08/2024 Travel 11/08/2024 Refill [facility] [address] [place] [address] Kristen Goldberg VIDEO GAME SCRIPT WRITER-SKIING TEACHER Refill Request from Last 3 Months Immunizations Immunization Administration Dates Next Due Covid InstyBook primary monoval ent 12+ yr 0.3mL Purple [...] PM CDT Legal Sex Male 6:35 AM RESEARCH PROFESSOR OF BIOSTATISTICS Gender Identity Male 06/04/2021 7:34 PM CDT Sexual Orientation Straight 06/04/2021 7: 34 PM CDT Last Filed Vital Signs Vital Sign Reading Time Taken Comments Blood Pressure 130/74 10/21/2024 11:43 AM RESEARCH PROFESSOR OF BIOSTATISTICS Pulse 70 10/21/2024 11:43 AM RESEARCH PROFESSOR OF BIOSTATISTICS Temperature 37.1 C (98.7 F) 10/21/2024 11:43 AM RESEARCH PROFESSOR OF BIOSTATISTICS Respiratory Rate 16 04/21/2024 8:12 AM CDT Oxygen Saturation 93% 10/21/2024 11: 43 AM RESEARCH PROFESSOR OF BIOSTATISTICS Inhaled Oxygen Concentration - - Weight 109.5 kg (241 lb 6.4 oz) 025 11:43 AM RESEARCH PROFESSOR OF BIOSTATISTICS Height 175.3 cm (5' 9 ) 10/21/2024 11:4 3 AM RESEARCH PROFESSOR OF BIOSTATISTICS Body Mass Index 35.65 10/21/2024 11:43 AM RESEARCH PROFESSOR OF BIOSTATISTICS Plan of Treatment Upcoming Encounters Date Type Department Care Team (Late st Contact Info) Description 01/28/2025 10:30 AM CDT Office Visit [facility] [address] [facility] [address] [place] [address] Kristen oGldberg VIDEO GAME SCRIPT WRITER-SKIING TEACHER [facility] [place] [address] 01/28/2025 3:00 PM CDT [facility] [address], [place] [phone] Bina Luque APRN-SKIING TEACHER [address] [place] [phone] 06/29/2025 10:30 AM CDT Office Visit [facility] [address] [facility] [address] [place] [phone] Kristen Goldberg, VIDEO GAME SCRIPT WRITER-SKIING TEACHER [address] [facility] [place] [address] Health Maintenance Due Date Last Done Comments [...] ENDOSCOPY, COLON, SCREENING Routine 10/02/2020 7:38 AM RESEARCH PROFESSOR OF BIOSTATISTICS from Last 3 Months or Most Recently Relevant to Health Maintenance Results * US AAA SCREENING (05/30/2023 9:45 AM CDT) Anatomical Region Laterality Modality Abdomen Ultrasound 05/30/2023 9:29 AM CDT Impressions 05/30/2023 10:56 AM CDT IMPRESSION: No evidence of abdominal aortic aneurysm. > Dictated by Connie Claros MD (residential appraiser). IStephan have personally reviewed and interpreted this [...] aneurysm. > Dictated by Connie Claros MD (residential appraiser). I, Stephan Bragg have personally reviewed and [...] 46 U/L [facility] Comment: Test Performed at: [employer] [id number] [facility] [place] [address] SELWYN MCKENZIE MD Blood BLOOD SPECIMEN / Unknown 05/21/2023 9:52 AM CDT 05/21/2023 9:55 AM CDT Heath Aleman PA-C LAB - CHEMISTRY ORDERA BLES Final Result Performing Organization Address [facility] de Phone Number [facility] [address] [place] [address] * HEPATITIS C AB W/RFLX TO HCV RNA QN PCR (04/18/2021 3:37 PM CDT) Hepatitis C Antibody NON-REACTI VE NON-REACT MACKENZIE [facility] Signal to Cut-Off 0.02 <1.00 [facility] Comment: HCV antibody was non-reactive. There is no laboratory evidence of HCV infection. In most cases, no further action is required. However, if recent HCV exposure is suspected, a test for HCV RNA (test code 72083) is suggested. For additional information please refer to http://education.Melodigram/faq/HHM93h8 (This link is being provided for informational/ educational purposes only.) REPORT COMMENT: FASTING:YES Test Performed at: [employer] [address] [place] [address] KANG LAYTON DO,MPH 04/18/2021 3:37 PM CDT 04/18/2021 3:38 PM CDT Heath Aleman PA-C LAB - CHEMISTRY ORDERA BLES Final Result Performing Organization Address [facility]/[employer] de Phone Number [facility] [address] [place] [address] * ENDOSCOPY, COLON, SCREENING (10/02/2020 7:38 AM RESEARCH PROFESSOR OF BIOSTATISTICS) Report Endoscopy POC Endoscopy Department Report _ [...] bowel preparation was evaluated using the BBPS ([place] Bowel Preparation Scale) with scores of: Right [...] Residual hemorrhoidal skin tags CPT copyright 2019 [employer]. All rights reserved. The codes documented in this report are preliminary and upon safety sitter review may be revised to meet current compliance requirements. Ramana Barry MD 10/02/2020 8:37:23 AM Note Initiated On: 10/02/2020 7:38 AM Number of Addenda: [address] [address] [facility] 10/02/2020 7:38 AM RESEARCH PROFESSOR OF BIOSTATISTICS us Ramana Barry MD GI PROCEDURE ORDERAB LES Edited Result - Final [facility] from Last 3 Months or Most Recently Relevant to Health Maintenance Care Teams Resort Keeper Relationship Specialty Start Date End Date Heath Aleman PA-C [address] [facility] [address] [place] [phone] PCP - General 11/04/19 [place] [address] [place] [address] 05/03/10 Fabian Major MD [address] [facility] [address] [place] [address] 05/03/10 Garfield Starr MD [address] [place] [address] 05/03/10
--- OUTSIDE RECORDS SUMMARY | 2025-01-22 14:13 | XMS_ITS | Encounter Summary ---
Author Organization [facility] Address [address] [facility] [place] [address] Care Team Providers Care Deputy City Clerk Name Role Phone Manjinder Dixon MD Unavailable [phone] Fabian Major MD Unavailable [phone] Garfield Starr MD Unavailable Heath Aleman PA-C Primary Care Provider Reason for Visit * Reason Onset Date Comments MEDICATION REFILL 04/14/2023 Encounter Details Date Type Department Care Team (Late st Contact Info) Description 04/14/2023 Refill [facility] [address] [place] [address] Heath Aleman PA-C [address] [place] [phone] MEDICATION REFILL Social History Tobacco Use Types [...] PM CDT Legal Sex Male 6:35 AM OBSTETRICS NURSE Gender Identity Male 06/04/2021 7:34 PM CDT Sexual Orientation Straight 06/04/2021 7: 34 PM CDT documented as of this encounter Plan of Treatment Upcoming Encounters Date Type Department Care Team (Late st Contact Info) Description 01/28/2025 10:30 AM CDT Office Visit [facility] [address] [facility] [address] [place] [phone] Kristen Goldberg, SILK CONDITIONER-COMPOSING MACHINE OPERATOR/TENDER [address] [facility] [place] [address] 01/28/2025 3:00 PM CDT Office Visit [facility] - [address], [facility] [place] [phone] Bina Luque, SILK CONDITIONER-COMPOSING MACHINE OPERATOR/TENDER [facility] [phone] 06/29/2025 10:30 AM CDT Office Visit [facility] - Urology [address] [facility] [address] [place] [phone] Kristen Goldberg, SILK CONDITIONER-COMPOSING MACHINE OPERATOR/TENDER [address] [facility] [place] [address] documented as of this encounter Visit Diagnoses Diagnosis Mixed hyperlipidemia documented in this encounter Care Teams Deputy City Clerk Relationship Specialty Start Date End Date Heath Aleman PA-C [address] [facility] [address] [place] [address] PCP - General 11/04/19 [place] [address] [place] [address] 05/03/10 Fabian Major MD [address] [address] 05/03/10 Garfield Starr MD [address] [place] [address] 05/03/10 documented as of this encounter
--- OUTSIDE RECORDS SUMMARY | 2025-01-22 14:13 | XMS_ITS | Encounter Summary ---
Author Organization [facility] Address [address] [place] [address] Care Team Providers Care Pipe Fitter Apprentice Name Role Phone No, Physician Primary Care Provider [phone] Heath Aleman Primary Care Provider [phone] Reason for Visit * Reason Onset Date Comments order 04/05/2024 Encounter Details Date Type Department Care Team (Late st Contact Info) Description 04/05/2024 Telephone [facility] [place] [facility] [address] [facility] [address] [place] [address] Dianna Lutz MD [address] [facility] [address] [facility] [phone] [place] [address] order Social History Tobacco Use Types Packs/Day [...] on file Legal Sex Male 4:30 AM SHIELD OPERATOR Gender Identity Male 02/19/2024 3:53 AM CDT [...] Chronic Care Management No change(09/07 12:35 PM SHIELD OPERATOR) No Mendy Pope RN Note: Problem: Chronic Pain Goals: 1. Minimize further functional decline 2. Maximize quality of life 3. Control pain Strategies: - Activity/exercise program recommendation - Conservative stepwise pain medicine strategy with multi-disciplinary approach - Recommend healthy lifestyle strategies and compensatory methods as needed documented as of this encounter Visit Diagnoses Not on filedocumented in this encounter Care Teams Pipe Fitter Apprentice Relationship Specialty Start Date End Date No, Physician PCP - General 03/18/24 06/01/24 Heath Aleman PA [address] [address] PCP - General Emergency Medicine 06/02/24 documented as of this encounter
--- OUTSIDE RECORDS SUMMARY | 2025-01-22 14:13 | XMS_ITS | Clinical Summary ---
Author Organization [facility] Address [address] [place] [address] Care Team Providers Care Education Officer Name Role Phone Heath Aleman Primary Care Provider [phone] Allergies Active Allergy Reactions Criticality Noted Date Comments Donald Inhibitors Cough Low 07/16/2019 Peanut Medications famotidine (PEPCID) oral suspension 40 mg/5 mL Take 1 tablet by mouth as directed Active ixlhfgqw-nzz-nlf anatoliy sulfate 4.5 mg iron powder in [...] Description 01/19/2025 2:40 PM CDT Office Visit [facility] Neurosurgery [address] [place] [address] [address] Narayan Mims MD Spinal stenosis of lumbar region with neurogenic claudication (Primary Dx) 01/19/2025 Orders Only [facility] Neurosurgery [address] [place] [phone] Narayan Mims MD Spinal stenosis of lumbar region with neurogenic claudication 01/19/2025 Orders Only [facility] Neurosurgery [address] [place] [phone] Narayan Mims MD Spinal stenosis of lumbar region with neurogenic claudication (Primary Dx) 01/12/2025 11:30 AM CDT Office Visit [facility] Orthopaedic Surgery [address] [place] [phone] Federico Coelho MD Left knee pain, unspecified chronicity (Primary Dx); Hip pain, bilateral; Chronic pain of left knee; Primary osteoarthritis of left knee 01/12/2025 11:00 AM CDT - 01/12/2025 11:59 PM CDT Hospital Encounter [facility] [address] [facility] [address] [place] [phone] Left knee pain, unspecified chronicity Discharge Disposition: [...] on file Legal Sex Male 4:30 AM SENIOR PRODUCT DEVELOPMENT MANAGER Gender Identity Male 02/19/2024 3:53 AM CDT Sexual Orientation Straight 02/19/2024 3: 53 AM CDT Obstetrics History Last Filed Vital Signs Vital Sign Reading Time Taken Comments Blood Pressure 146/81 09/07/2024 1:46 PM SENIOR PRODUCT DEVELOPMENT MANAGER Pulse 59 09/07/2024 1:46 PM SENIOR PRODUCT DEVELOPMENT MANAGER Temperature 36.5 C (97.7 F) 09/07/2024 12:33 PM SENIOR PRODUCT DEVELOPMENT MANAGER Respiratory Rate 18 09/07/2024 1:46 PM SENIOR PRODUCT DEVELOPMENT MANAGER Oxygen Saturation 96% 09/07/2024 1:46 PM SENIOR PRODUCT DEVELOPMENT MANAGER Inhaled Oxygen Concentration - - Weight 108.9 [...] Chronic Care Management No change(09/07 12:35 PM SENIOR PRODUCT DEVELOPMENT MANAGER) No Mendy Pope, [place] Note: Problem: Chronic [...] R esult from Last 3 Months Insurance [employer] CHOICE Care Teams Education Officer Relationship Specialty Start Date End Date Heath Aleman PA [address] [facility] [address] [place] [address] PCP - General Emergency Medicine 06/02/24
--- OUTSIDE RECORDS SUMMARY | 2025-01-22 14:13 | XMS_ITS | Encounter Summary ---
Author Organization [facility] Address [address] [facility] [place] [address] Care Team Providers Care Flatbed Driver Name Role Phone Manjinder Dixon MD Unavailable Fabian Major MD Unavailable [phone] Garfield Starr MD Unavailable [phone] Heath Aleman PA-C Primary Care Provider Reason for Visit * Reason Onset Date Comments MEDICATION REFILL 05/10/2022 Encounter Details Date Type Department Care Team (Late st Contact Info) Description 05/10/2022 Refill [facility] Family and Community Medicine [address] [place] [address] Heath Aleman PA-C [address] [place] [phone] MEDICATION REFILL Social History Tobacco Use [...] PM CDT Legal Sex Male 6:35 AM FIRER KILN Gender Identity Male 06/04/2021 7:34 PM CDT [...] Description 01/28/2025 10:30 AM CDT Office Visit [facility] - Urology [address] [place] [address] Rd [address] [place] [address] Kristen Goldberg APRN-FINISHING RANGE FEEDER [address] [facility] [place] [address] 01/28/2025 3:00 PM CDT Office Visit [facility] - Family Medicine [address] [place] [address], [place] [phone] Bina Luque APRN-FINISHING RANGE FEEDER [address] [place] [address] [place] [phone] 06/29/2025 10:30 AM CDT [facility] [address] [place] [address] Rd [address] [place] [phone] Kristen Goldberg SEAT PACK INSPECTOR-FINISHING RANGE FEEDER [address] [facility] [place] [address] documented as of this encounter Visit Diagnoses Diagnosis HTN (hypertension), benign Essential hypertension, benign documented in this encounter Care Teams Flatbed Driver Relationship Specialty Start Date End Date Heath Aleman PA-C [address] [facility] [address] [place] [address] PCP - General 11/04/19 [place] [address] [place] [address] 05/03/10 Fabian Major MD [address] [facility] [address] [place] [address] 05/03/10 Garfield Starr MD [address] [place] [address] 05/03/10 documented as of this encounter
== END 2025-01-21 15:02 | disposition home or self-care (01) ==
PROVIDERS: Registered Nurse; Emergency Provider Emergency Medicine
DX: N40.1 Benign prostatic hyperplasia with lower urinary tract symptoms (principal); R33.8 Other retention of urine; I10 Essential (primary) hypertension; E78.2 Mixed hyperlipidemia; K75.81 Nonalcoholic steatohepatitis (NASH); K21.9 Gastro-esophageal reflux disease without esophagitis; Z87.442 Personal history of urinary calculi; Z87.891 Personal history of nicotine dependence; Z79.899 Other long term (current) drug therapy
CPT/HCPCS: 51702; 81001; 96372; 99283; J1885

== ENCOUNTER 2025-01-23 15:17 | Emergency (ER) | payer BC, SELFPAY ==
--- OUTSIDE RECORDS SUMMARY | 2025-01-23 15:19 | XMS_ITS | Clinical Summary ---
Author Organization [facility] Address [address] [facility] [place] [address] Care Team Providers Care Pharmacist Hospital Name Role Phone Manjinder Dixon MD Unavailable [phone] Fabian Major MD Unavailable [phone] Garfield Starr MD Unavailable [phone] Heath Aleman PA-C Primary Care Provider Source Comments [facility],non-owned Affiliates and Associated Physician Practices is amultiple site organization consisting of ambulatory clinics and hospital sitesin [place], [place], [place] and [place]. This disclosure is being madepursuant to the Care Everywhere program and may not contain all information available regarding this patient. Last updated 18.[facility] Allergies Active Allergy Reactions Criticality Noted Date Comments Donald Inhibitors Cough 07/16/2019 Peanut-Derived Angioedema High 11/04/2019 Medications * Be aware that medications may not be up to date on this document. Alwaysverify current medications with the patient. [place]-3 Fatty Acids (FISH OIL PO) Take 1 [...] Telephone [facility] [address] [facility], [place] [phone] Wilma Salazar, RN Urinary Retention 01/10/2025 Refill [facility] [address] [place] [phone] Kristen Goldberg APRN-DIRECTOR OF ENROLLMENT Refill Request 12/10/2024 Refill [facility] [address] [place] [address] Kristen Goldberg WELCOME DESK AGENT-DIRECTOR OF ENROLLMENT Refill Request 12/08/2024 Travel 11/08/2024 Refill [facility] [address] [place] [address] Kristen Goldberg WELCOME DESK AGENT-DIRECTOR OF ENROLLMENT Refill Request from Last 3 Months Immunizations Immunization Administration Dates Next Due Covid Jelli primary monoval ent 12+ yr 0.3mL Purple [...] PM CDT Legal Sex Male 6:35 AM CLIENT PROFESSIONAL Gender Identity Male 06/04/2021 7:34 PM CDT Sexual Orientation Straight 06/04/2021 7: 34 PM CDT Last Filed Vital Signs Vital Sign Reading Time Taken Comments Blood Pressure 130/74 10/21/2024 11:43 AM CLIENT PROFESSIONAL Pulse 70 10/21/2024 11:43 AM CLIENT PROFESSIONAL Temperature 37.1 C (98.7 F) 10/21/2024 11:43 AM CLIENT PROFESSIONAL Respiratory Rate 16 04/21/2024 8:12 AM CDT Oxygen Saturation 93% 10/21/2024 11: 43 AM CLIENT PROFESSIONAL Inhaled Oxygen Concentration - - Weight 109.5 kg (241 lb 6.4 oz) 025 11:43 AM CLIENT PROFESSIONAL Height 175.3 cm (5' 9 ) 10/21/2024 11:4 3 AM CLIENT PROFESSIONAL Body Mass Index 35.65 10/21/2024 11:43 AM CLIENT PROFESSIONAL Plan of Treatment Upcoming Encounters Date Type Department Care Team (Late st Contact Info) Description 01/28/2025 10:30 AM CDT Office Visit [facility] [address] [facility] [address] [place] [address] Kristen Goldberg WELCOME DESK AGENT-DIRECTOR OF ENROLLMENT [facility] [place] [address] 01/28/2025 3:00 PM CDT [facility] [address], [place] [phone] Bina Luque APRN-DIRECTOR OF ENROLLMENT [address] [place] [phone] 06/29/2025 10:30 AM CDT Office Visit [facility] [address] [facility] [address] [place] [address] Kristen Goldberg, WELCOME DESK AGENT-DIRECTOR OF ENROLLMENT [address] [facility] [place] [address] Health Maintenance Due Date Last Done Comments [...] ENDOSCOPY, COLON, SCREENING Routine 10/02/2020 7:38 AM CLIENT PROFESSIONAL from Last 3 Months or Most Recently Relevant to Health Maintenance Results * US AAA SCREENING (05/30/2023 9:45 AM CDT) Anatomical Region Laterality Modality Abdomen Ultrasound 05/30/2023 9:29 AM CDT Impressions 05/30/2023 10:56 AM CDT IMPRESSION: No evidence of abdominal aortic aneurysm. > Dictated by Connie Claros MD (professor of radiology). IStephan have personally reviewed and interpreted this [...] aneurysm. > Dictated by Connie Claros MD (professor of radiology). I, Stephan Bragg have personally reviewed and [...] 46 U/L [facility] Comment: Test Performed at: [facility] [address] [place] [address] SELWYN MCKENZIE MD Blood BLOOD SPECIMEN / Unknown 05/21/2023 9:52 AM CDT 05/21/2023 9:55 AM CDT Heath Aleman PA-C LAB - CHEMISTRY ORDERA BLES Final Result Performing Organization Address [facility] de Phone Number [facility] [address] [place] [address] * HEPATITIS C AB W/RFLX TO HCV RNA QN PCR (04/18/2021 3:37 PM CDT) Hepatitis C Antibody NON-REACTI VE NON-REACT MACKENZIE [facility] Signal to Cut-Off 0.02 <1.00 [facility] Comment: HCV antibody was non-reactive. There is no laboratory evidence of HCV infection. In most cases, no further action is required. However, if recent HCV exposure is suspected, a test for HCV RNA (test code 47647) is suggested. For additional information please refer to http://education.CorkCRM/faq/ESF71t8 (This link is being provided for informational/ educational purposes only.) REPORT COMMENT: FASTING:YES Test Performed at: [facility] [address] [place] [address] KANG LAYTON DO,MPH 04/18/2021 3:37 PM CDT 04/18/2021 3:38 PM CDT Heath Aleman PA-C LAB - CHEMISTRY ORDERA BLES Final Result Performing Organization Address [facility] Co de Phone Number [facility] [address] [place] [address] * ENDOSCOPY, COLON, SCREENING (10/02/2020 7:38 AM CLIENT PROFESSIONAL) Report Endoscopy POC Endoscopy Department Report _ [...] bowel preparation was evaluated using the BBPS (Calvin Bowel Preparation Scale) with scores of: Right [...] Residual hemorrhoidal skin tags CPT copyright 2019 [employer]. All rights reserved. The codes documented in this report are preliminary and upon applications architect review may be revised to meet current compliance requirements. Ramana Barry MD 10/02/2020 8:37:23 AM Note Initiated On: 10/02/2020 7:38 AM Number of Addenda: [address] [address] [facility] 10/02/2020 7:38 AM CLIENT PROFESSIONAL us Ramana Barry MD GI PROCEDURE ORDERAB LES Edited Result - Final [facility] from Last 3 Months or Most Recently Relevant to Health Maintenance Care Teams Pharmacist Hospital Relationship Specialty Start Date End Date Heath Aleman PA-C [address] [facility] [address] [place] [phone] PCP - General 11/04/19 [place] [address] [place] [address] 05/03/10 Fabian Major MD [address] [facility] [address] [place] [address] 05/03/10 Garfield Starr MD [address] [place] [address] 05/03/10
--- OUTSIDE RECORDS SUMMARY | 2025-01-23 15:19 | XMS_ITS | Encounter Summary ---
Author Organization [facility] Address [address] [facility] [place] [address] Care Team Providers Care Test Borer Name Role Phone Manjinder Dixon MD Unavailable [phone] Fabian Major MD Unavailable [phone] Garfield Starr MD Unavailable Heath Aleman PA-C Primary Care Provider Reason for Visit * Reason Onset Date Comments MEDICATION REFILL 04/14/2023 Encounter Details Date Type Department Care Team (Late st Contact Info) Description 04/14/2023 Refill [facility] [address] [place] [address] Heath Aleman PA-C [address] [place] [phone] MEDICATION REFILL Social History Tobacco Use Types [...] PM CDT Legal Sex Male 6:35 AM SECURITY SYSTEMS INTEGRATOR Gender Identity Male 06/04/2021 7:34 PM CDT Sexual Orientation Straight 06/04/2021 7: 34 PM CDT documented as of this encounter Plan of Treatment Upcoming Encounters Date Type Department Care Team (Late st Contact Info) Description 01/28/2025 10:30 AM CDT Office Visit [facility] [facility] [address] [place] [phone] Kristen Goldberg, CONTACT OFFICER-CUSTOMER SUCCESS ASSOCIATE [address] [facility] [place] [address] 01/28/2025 3:00 PM CDT Office Visit [facility] - [address], [facility] [place] [phone] Bina Luque, CONTACT OFFICER-CUSTOMER SUCCESS ASSOCIATE [facility] [phone] 06/29/2025 10:30 AM CDT Office Visit [facility] - Urology [facility] [address] [place] [address] Kristen Goldberg, CONTACT OFFICER-CUSTOMER SUCCESS ASSOCIATE [address] [facility] [place] [address] documented as of this encounter Visit Diagnoses Diagnosis Mixed hyperlipidemia documented in this encounter Care Teams Test Borer Relationship Specialty Start Date End Date Heath Aleman PA-C [address] [facility] [address] [place] [address] PCP - General 11/04/19 [place] [address] [place] [address] 05/03/10 Fabian Major MD [address] [address] 05/03/10 Garfield Starr MD [address] [place] [address] 05/03/10 documented as of this encounter
--- OUTSIDE RECORDS SUMMARY | 2025-01-23 15:19 | XMS_ITS | Encounter Summary ---
Author Organization [facility] Address [address] [place] [address] Care Team Providers Care Mechanical Piping Designer Name Role Phone No, Physician Primary Care Provider [phone] Heath Aleman Primary Care Provider [phone] Reason for Visit * Reason Onset Date Comments order 04/05/2024 Encounter Details Date Type Department Care Team (Late st Contact Info) Description 04/05/[address] [facility] [address] [facility] [address] [place] [address] Dianna Lutz MD [address] [facility] [address] [facility] [id number] [place] [address] order Social History Tobacco Use Types Packs/Day [...] on file Legal Sex Male 4:[address] FREIGHT Gender Identity Male 02/19/2024 3:53 AM CDT [...] Chronic Care Management No change(09/07 12:[address] ENG[address]ER FREIGHT) No Mendy Pope RN Note: Problem: Chronic Pain Goals: 1. Minimize further functional decline 2. Maximize quality of life 3. Control pain Strategies: - Activity/exercise program recommendation - Conservative stepwise pain medicine strategy with multi-disciplinary approach - Recommend healthy lifestyle strategies and compensatory methods as needed documented as of this encounter Visit Diagnoses Not on filedocumented in this encounter Care Teams Mechanical Piping Designer Relationship Specialty Start Date End Date No, Physician PCP - General 03/18/24 06/01/24 Heath Aleman PA [address] [address] PCP - General Emergency Medicine 06/02/24 documented as of this encounter
--- OUTSIDE RECORDS SUMMARY | 2025-01-23 15:19 | XMS_ITS | Referral Summary ---
Author Organization [facility] Address [address] [place] [address] Care Team Providers Care Traffic Control Specialist Name Role Phone Heath Aleman Primary Care Provider [phone] Encounters Date Type Department Care Team Description 01/19/2025 Orders Only [facility] Neurosurgery [address] [place] [address] [place] [phone] Narayan Mims MD Spinal stenosis of lumbar region with neurogenic claudication 01/19/2025 Orders Only [facility] Neurosurgery [address] [place] [address] [place] [phone] Narayan Mims MD Spinal stenosis of lumbar region with neurogenic claudication (Primary Dx) 01/19/2025 2:40 PM CDT Office Visit [facility] Neurosurgery [address] [place] [address] Office [facility] [address] [phone] Narayan Mims MD Spinal stenosis of lumbar region with neurogenic claudication (Primary Dx) 01/12/2025 11:00 AM CDT - 01/12/2025 11:59 PM CDT Hospital Encounter [id number] [address] [place] [phone] Left knee pain, unspecified chronicity Discharge Disposition: Discharge to home or self care 01/12/2025 11:30 AM CDT Office Visit [facility] Orthopaedic Surgery [address] [place] [address] Office [facility] [address] [phone] Federico Coelho MD Left knee pain, unspecified chronicity (Primary Dx); Hip pain, bilateral; Chronic pain of left knee; Primary osteoarthritis of left knee from Last 3 Months Allergies Active Allergy Reactions Criticality Noted Date Comments Donald Inhibitors Cough Low 07/16/2019 Peanut Medications famotidine (PEPCID) oral suspension 40 mg/5 mL Take 1 tablet by mouth as directed Active fmxeoiuk-tcn-wht anatoliy sulfate 4.5 mg iron powder in [...] on file Legal Sex Male 4:30 AM MANAGER MEDICAID Gender Identity Male 02/19/2024 3:53 AM CDT Sexual Orientation Straight 02/19/2024 3: 53 AM CDT Last Filed Vital Signs Vital Sign Reading Time Taken Comments Blood Pressure 146/81 09/07/2024 1:46 PM MANAGER MEDICAID Pulse 59 09/07/2024 1:46 PM MANAGER MEDICAID Temperature 36.5 C (97.7 F) 09/07/2024 12:33 PM MANAGER MEDICAID Respiratory Rate 18 09/07/2024 1:46 PM MANAGER MEDICAID Oxygen Saturation 96% 09/07/2024 1:46 PM MANAGER MEDICAID Inhaled Oxygen Concentration - - Weight 108.9 kg (240 lb) 01/19/2025 2:48 PM CDT Height 175.3 cm (5' 9 ) 01/19/2025 2:48 PM CDT Body Mass Index 35.44 01/19/2025 2:48 PM CDT Plan of Treatment Not on file Goals Goal Patient Goal Type Associated Problems Recent Progress Patient-Stated? Author CCM Chronic Pain Care Plan Chronic Care Management No change(09/07 12:35 PM MANAGER MEDICAID) Mendy Alfaro RN Note: Problem: Chronic Pain [...] ACCESS CHOICE ANTHEM ACCESS CHOICE Care Teams Traffic Control Specialist Relationship Specialty Start Date End Date Heath Aleman PA [address] [place] [address] PCP - General Emergency Medicine 06/02/24
--- OUTSIDE RECORDS SUMMARY | 2025-01-23 15:19 | XMS_ITS | Clinical Summary ---
Author Organization [facility] Address [address] [place] [address] Care Team Providers Care Computer Programming Supervisor Name Role Phone Heath Aleman Primary Care Provider [phone] Allergies Active Allergy Reactions Criticality Noted Date Comments Donald Inhibitors Cough Low 07/16/2019 Peanut Medications famotidine (PEPCID) oral suspension 40 mg/5 mL Take 1 tablet by mouth as directed Active vjxwflak-hde-gmz anatoliy sulfate 4.5 mg iron powder in [...] Apply topically 2 (two) times a day Active rosuvastatin (CRESTOR) 10 mg tablet Take [...] Description 01/19/2025 2:40 PM CDT Office Visit [facility] Neurosurgery [address] [place] [address] [phone] Narayan Mims MD Spinal stenosis of lumbar region with neurogenic claudication (Primary Dx) 01/19/[address] [facility] Neurosurgery [address] [place] [phone] Narayan Mims MD Spinal stenosis of lumbar region with neurogenic claudication 01/19/[address] [facility] Neurosurgery [address] [place] [phone] Narayan Mims MD Spinal stenosis of lumbar region with neurogenic claudication (Primary Dx) 01/12/2025 11:30 AM CDT Office Visit [facility] Orthopaedic Surgery [address] [place] [phone] Federico Coelho MD Left knee pain, unspecified chronicity (Primary Dx); Hip pain, bilateral; Chronic pain of left knee; Primary osteoarthritis of left knee 01/12/2025 11:00 AM CDT - 01/12/2025 11:59 PM CDT Hospital Encounter [id number] [address] [facility] [address] [place] [phone] Left knee pain, unspecified chronicity Discharge Disposition: [...] on file Legal Sex Male 4:30 AM BOAT RIGGER Gender Identity Male 02/19/2024 3:53 AM CDT Sexual Orientation Straight 02/19/2024 3: 53 AM CDT Obstetrics History Last Filed Vital Signs Vital Sign Reading Time Taken Comments Blood Pressure 146/81 09/07/2024 1:46 PM BOAT RIGGER Pulse 59 09/07/2024 1:46 PM BOAT RIGGER Temperature 36.5 C (97.7 F) 09/07/2024 12:33 PM BOAT RIGGER Respiratory Rate 18 09/07/2024 1:46 PM BOAT RIGGER Oxygen Saturation 96% 09/07/2024 1:46 PM BOAT RIGGER Inhaled Oxygen Concentration - - Weight 108.9 [...] Chronic Care Management No change(09/07 12:35 PM BOAT RIGGER) No Mendy Pope, [place] Note: Problem: Chronic [...] R esult from Last 3 Months Insurance [employer] CHOICE Care Teams Computer Programming Supervisor Relationship Specialty Start Date End Date Heath Aleman PA [address] [facility] [address] [place] [address] PCP - General Emergency Medicine 06/02/24
--- OUTSIDE RECORDS SUMMARY | 2025-01-23 15:19 | XMS_ITS | Encounter Summary ---
Author Organization [facility] Address [address] [facility] [place] [address] Care Team Providers Care Utilities Estimator And Drafter Name Role Phone Manjinder Dixon MD Unavailable [phone] Fabian Major MD Unavailable [phone] Garfield Starr MD Unavailable [phone] Heath Aleman PA-C Primary Care Provider Reason for Visit * Reason Onset Date Comments MEDICATION REFILL 05/10/2022 Encounter Details Date Type Department Care Team (Late st Contact Info) Description 05/10/2022 Refill [facility] [address] [place] [address] Heath Aleman PA-C [address] [place] [phone] MEDICATION REFILL Social History Tobacco Use [...] PM CDT Legal Sex Male 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 COMPOUND BLENDER Gender Identity Male 06/04/2021 7:34 PM CDT [...] Description 01/28/2025 10:30 AM CDT Office Visit [facility] - Urology [address] [place] [address] [address] [place] [address] Kristen Goldberg APRN-PAPERHANGER [address] [facility] [place] [address] 01/28/2025 3:00 PM CDT Office Visit [facility] - Family Medicine [address] [place] [address], [place] [phone] Bina Luque APRN-PAPERHANGER [address] [place] [address] [place] [phone] 06/29/2025 10:30 AM CDT [facility] [address] [place] [address] [address] [place] [phone] Kristen oGldberg DENTAL APPLIANCE MECHANIC-PAPERHANGER [address] [facility] [place] [address] documented as of this encounter Visit Diagnoses Diagnosis HTN (hypertension), benign Essential hypertension, benign documented in this encounter Care Teams Utilities Estimator And Drafter Relationship Specialty Start Date End Date Heath Aleman PA-C [address] [facility] [address] [place] [address] PCP - General 11/04/19 [place] [address] [place] [address] 05/03/10 Fabian Major MD [address] [facility] [address] [place] [address] 05/03/10 Garfield Starr MD [address] [place] [address] 05/03/10 documented as of this encounter
[2025-01-23 15:21] VITALS: BP 168/93; PULSE 80; RESP 15; TEMP 36.3; O2SAT 100
[2025-01-23 15:30] VITALS: BP 170/86; PULSE 70; RESP 20; O2SAT 98
--- NOTE | 2025-01-23 15:53 | ED_ITS ---
HPI - General Adult General Chief complaint: Urogenital-Male Stated complaint: catheter leaking Time Seen by Provider: 01/23/25 15:28 History of Present Illness HPI narrative: Patient is is 69-year-old male who presents ER with a catheter that is not draining properly. Reports he is more active than typical yesterday. Began having some blood-tinged urine last night. That is continued through today. He has been having leaking around his catheter and the catheter continues to not d rain on its own. No fevers or chills or sweats. No other concerns. Related Data Allergies Allergy/AdvReac Type Severity Reaction Status Date / Time peanut Allergy Unknown Swelling Verified 01/23/25 15:34 Review of Systems Constitutional: Constitutional: Reports no additional constitutional complaints Gastrointestinal: Gastrointestinal: Reports no additional gastrointestinal complaints Genitourinary: Genitourinary: Reports no additional male genitourinary complaints PMFSH Past Medical History Medical History (Updated 01/23/25 @ 16:47 by Lang Adams MD) JARAMILLO (nonalcoholic steatohepatitis) Mixed hyperlipidemia Chronic GERD Calculus of ureter Benign essential hypertension Family History Family History (Updated 05/19/14 @ 07:13 by DOCTOR UNKNOWN) Father Family history of heart disease in male family member before age 55 Grandparent Family history of heart disease in male family member before age 55 Social History Social History Smoking status: Former smoker Second hand tobacco smoke exposure: Yes Smoking end date: 09/22/12 Alcohol intake: never Exam Narrative: GENERAL: Well-appearing, well-nourished, and in no acute distress. HEAD: Normocephalic, atraumatic. ENT: Mucous membranes moist. ABDOMEN: Soft, nontender, nondistended. EXTREMITIES: Normal range of motion. No edema. SKIN: Warm, dry, no rash. NEURO: Alert and oriented x3. PSYCH: Normal mood and affect. Course Course Emergency Course: Canseco exchange in draining. Very faint pinkish hue. US negative. D/c. Vital Signs Vital signs: Vital Signs Temperature 97.4 F L 01/23/25 15:21 Pulse Rate 80 01/23/25 15:21 Respiratory Rate 15 01/23/25 15:21 Blood Pressure 168/93 H 01/23/25 15:21 Pulse Oximetry 100 01/23/25 15:21 Oxygen Delivery Room Air 01/23/25 15:21 Temperature 97.4 F L 01/23/25 15:21 Pulse Rate 61 01/23/25 16:10 Respiratory Rate 20 01/23/25 16:10 Blood Pressure 148/76 H 01/23/25 16:10 Pulse Oximetry 96 01/23/25 16:10 Oxygen Delivery Room Air 01/23/25 15:30 Medical Decision Making Vital Signs Vital Signs: Vital Signs Temperature 97.4 F L 01/23/25 15:21 Pulse Rate 80 01/23/25 15:21 Respiratory Rate 15 01/23/25 15:21 Blood Pressure 168/93 H 01/23/25 15:21 Pulse Oximetry 100 01/23/25 15:21 Oxygen Delivery Room Air 01/23/25 15:21 Temperature 97.4 F L 01/23/25 15:21 Pulse Rate 61 01/23/25 16:10 Respiratory Rate 20 01/23/25 16:10 Blood Pressure 148/76 H 01/23/25 16:10 Pulse Oximetry 96 01/23/25 16:10 Oxygen Delivery Room Air 01/23/25 15:30 Lab Data Labs: Lab Results 01/23/25 Range/Units 16:09 Urine Color Yellow (Yellow) Urine Appearance Clear (Clear) Urine pH 6.0 (5.0-9.0) Ur Specific [place] 1.015 (1.001-1.035) Urine Protein Trace (Negative) mg/dL Urine Glucose (UA) Negative (Negative) mg/dL Urine Ketones Negative (Negative) mg/dL Ur Blood (Man) 3+ H (Negative) Urine Nitrate Negative (Negative) Urine Bilirubin Negative (Negative) Urine Urobilinogen 1.0 (<2.0) mg/dL Leukocyte Esterase Rfl Trace H (Negative) OMAR/UL Urine RBC 11-20 H (0-2) /hpf Urine WBC 0-5 (0-3) /hpf Ur Squamous Epith Cells None seen (Few) /hpf Urine Bacteria None seen /hpf Urine Casts 0-2 Discharge Plan Discharge Clinical Impression: Acute urinary retention, Complication, blocked Canseco catheter Patient Disposition: Home Condition: Stable Instructions: Antibiotic Form, Canseco Catheter Placement and Care (ED) Additional Instructions: Return the ER if your catheter is not draining, have fever 100.4? F, or you have additional concerns. Patient Language: Bel[place]an Prescriptions: No Action Bystolic 5 mg tablet 5 mg PO DAILY Qty: 90 2RF Follow-up/Referrals: UNKNOWN,DOCTOR [Non-Staff] - 1 Week
[2025-01-23 16:10] VITALS: BP 148/76; PULSE 61; RESP 20; O2SAT 96
[2025-01-23 16:19] LABS: Add Urine Microscopic? YES; Appearance Urine Clear (Clear); Bacteria Urine None Seen /hpf; Bilirubin Urine Negative (Negative); Blood Urine 3+ (Negative); Color Urine Yellow (Yellow); Glucose Urine UA Negative (Negative); Ketones Urine Negative (Negative); Leukocyte Esterase Ur Trace LEU/UL (Negative); Nitrate Urine Negative (Negative); Non Pathogenic Casts 0-2; Protein Urine Trace mg/dL (Negative); Specific Grav Ur 1.015 (1.001-1.035); Squamous Epithelial Cell Urine None Seen /hpf (Few); WBC Urine 0-5 /hpf (0-3)
--- OUTSIDE RECORDS SUMMARY | 2025-01-23 16:31 | XMS_ITS | Encounter Summary ---
Author Organization [facility] Healthcare Address [address] [place] [address] Care Team Providers Care Pizza Delivery Driver Name Role Phone No, Physician Primary Care Provider [phone] Heath Aleman Primary Care Provider [phone] Reason for Visit * Reason Onset Date Comments order 04/05/2024 Encounter Details Date Type Department Care Team (Late st Contact Info) Description 04/05/2024 Telephone [facility] [address] 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 Minimize further functional decline 2. Maximize quality of life 3. Control pain Strategies: - Activity/exercise program recommendation - Conservative stepwise pain medicine strategy with multi-disciplinary approach - Recommend healthy lifestyle strategies and compensatory methods as needed documented as of this encounter Visit Diagnoses Not on filedocumented in this encounter Care Teams Pizza Delivery Driver Relationship Specialty Start Date End Date No, Physician PCP - General 03/18/24 06/01/24 Heath Aleman PA [address] [address] PCP - General Emergency Medicine 06/02/24 documented as of this encounter
--- OUTSIDE RECORDS SUMMARY | 2025-01-23 16:31 | XMS_ITS | Encounter Summary ---
Author Organization [facility] Address [address] [facility] [place] [address] Care Team Providers Care Line Builder Name Role Phone Manjinder Dixon MD Unavailable [phone] Fabian Major MD Unavailable [phone] Garfield Starr MD Unavailable [phone] Heath Aleman PA-C Primary Care Provider Reason for Visit * Reason Onset Date Comments MEDICATION REFILL 04/14/2023 Encounter Details Date Type Department Care Team (Late st Contact Info) Description 04/14/2023 Refill [facility] - Family Medicine [address] [place] [address] Heath Aleman PA-C [address] [place] [phone] MEDICATION REFILL Social History Tobacco Use Types [...] PM CDT Legal Sex Male 6:35 AM GAS OR WATER METER INSTALLER Gender Identity Male 06/04/2021 7:34 PM CDT Sexual Orientation Straight 06/04/2021 7: 34 PM CDT documented as of this encounter Plan of Treatment Upcoming Encounters Date Type Department Care Team (Late st Contact Info) Description 01/28/2025 10:30 AM CDT Office Visit [facility] [address] [place] [phone] Kristen Goldberg, ENGINE COWLING INSTALLER-PROJECT ACCOUNTANT [address] [facility] [place] [address] 01/28/2025 3:00 PM CDT Office Visit [facility] - [address], [facility] [place] [phone] Bina Luque, ENGINE COWLING INSTALLER-PROJECT ACCOUNTANT [facility] [phone] 06/29/2025 10:30 AM CDT Office Visit [facility] - Urology [facility] [address] [place] [address] Kristen Goldberg, ENGINE COWLING INSTALLER-PROJECT ACCOUNTANT [address] [facility] [place] [address] documented as of this encounter Visit Diagnoses Diagnosis Mixed hyperlipidemia documented in this encounter Care Teams Line Builder Relationship Specialty Start Date End Date Heath Aleman PA-C [address] [facility] [address] [place] [address] PCP - General 11/04/19 [place] [address] [place] [address] 05/03/10 Fabian Major MD [address] [address] 05/03/10 Garfield Starr MD [address] [place] [address] 05/03/10 documented as of this encounter
--- OUTSIDE RECORDS SUMMARY | 2025-01-23 16:31 | XMS_ITS | Encounter Summary ---
Author Organization [facility] Address [address] [facility] [place] [address] Care Team Providers Care Cruise Guide Name Role Phone Manjinder Dixon MD Unavailable [phone] Fabian Major MD Unavailable [phone] Garfield Starr MD Unavailable [phone] Heath Aleman PA-C Primary Care Provider Reason for Visit * Reason Onset Date Comments MEDICATION REFILL 05/10/2022 Encounter Details Date Type Department Care Team (Late st Contact Info) Description 05/10/2022 Refill [facility] Family and Community Medicine [address] [place] [address] Heath Aleman PA-C [address] [place] [phone] MEDICATION REFILL Social History Tobacco Use [...] PM CDT Legal Sex Male 6:35 AM GMAT INSTRUCTOR Gender Identity Male 06/04/2021 7:34 PM CDT Sexual Orientation Straight 06/04/2021 7: 34 PM CDT documented as of this encounter Miscellaneous Notes * Telephone Encounter - Davide Jennifer - 05/10/2022 1:13 PM CDT rBant Jones Requested Prescriptions Pending Prescriptions Disp Refills [...] Description 01/28/2025 10:30 AM CDT Office Visit [facility] - Urology [address] [place] [address] Rd [address] [place] [address] Kristen Goldberg APRN-SOCIAL WELFARE ADMINISTRATOR [address] [facility] DEPT [place] [address] 01/28/2025 3:00 PM CDT Office Visit [facility] - Family Medicine [address] [place] [address], [place] [phone] Bina Luque APRN-SOCIAL WELFARE ADMINISTRATOR [address] [place] [address] [place] [phone] 06/29/2025 10:30 AM CDT [facility] [address] [place] [address] Rd [address] [place] [phone] Kristen Goldberg SALESPERSON FLYING SQUAD-SOCIAL WELFARE ADMINISTRATOR [address] [facility] DEPT [place] [address] documented as of this encounter Visit Diagnoses Diagnosis HTN (hypertension), benign Essential hypertension, benign documented in this encounter Care Teams Cruise Guide Relationship Specialty Start Date End Date Heath Aleman PA-C [address] [facility] [address] [place] [address] PCP - General 11/04/19 [place] [address] [place] [address] 05/03/10 Fabian Major MD [address] [facility] [address] [place] [address] 05/03/10 Garfield Starr MD [address] [place] [address] 05/03/10 documented as of this encounter
--- OUTSIDE RECORDS SUMMARY | 2025-01-23 16:31 | XMS_ITS | Clinical Summary ---
Author Organization [facility] Address [address] [place] [address] Care Team Providers Care Furniture Removalist Name Role Phone Heath Aleman Primary Care Provider [phone] Allergies Active Allergy Reactions Criticality Noted Date Comments Donald Inhibitors Cough Low 07/16/2019 Peanut Medications famotidine (PEPCID) oral suspension 40 mg/5 mL Take 1 tablet by mouth as directed Active ywewuwyt-tcf-cee anatoliy sulfate 4.5 mg iron powder in [...] Description 01/19/2025 2:40 PM CDT Office Visit [facility] Neurosurgery [address] [place] [address] [address] Narayan Mims MD Spinal stenosis of lumbar region with neurogenic claudication (Primary Dx) 01/19/2025 Orders Only [facility] Neurosurgery [address] [place] [phone] Narayan Mims MD Spinal stenosis of lumbar region with neurogenic claudication 01/19/2025 Orders Only [facility] Neurosurgery [address] [place] [phone] Narayan Mims MD Spinal stenosis of lumbar region with neurogenic claudication (Primary Dx) 01/12/2025 11:30 AM CDT Office Visit [facility] Orthopaedic Surgery [address] [place] [phone] Federico Coelho MD Left knee pain, unspecified chronicity (Primary Dx); Hip pain, bilateral; Chronic pain of left knee; Primary osteoarthritis of left knee 01/12/2025 11:00 AM CDT - 01/12/2025 11:59 PM CDT Hospital Encounter [facility] [address] [facility] [address] [place] [phone] Left knee pain, unspecified chronicity Discharge Disposition: [...] file Legal Sex Male 4:30 AM MANAGER FIELD SERVICE Gender Identity Male 02/19/2024 3:53 AM CDT Sexual Orientation Straight 02/19/2024 3: 53 AM CDT Obstetrics History Last Filed Vital Signs Vital Sign Reading Time Taken Comments Blood Pressure 146/81 09/07/2024 1:46 PM MANAGER FIELD SERVICE Pulse 59 09/07/2024 1:46 PM MANAGER FIELD SERVICE Temperature 36.5 C (97.7 F) 09/07/2024 12:33 PM MANAGER FIELD SERVICE Respiratory Rate 18 09/07/2024 1:46 PM MANAGER FIELD SERVICE Oxygen Saturation 96% 09/07/2024 1:46 PM MANAGER FIELD SERVICE Inhaled Oxygen Concentration - - Weight 108.9 [...] Care Management No change(09/07 12:35 PM MANAGER FIELD SERVICE) No Mendy Pope, [place] Note: Problem: Chronic [...] R esult from Last 3 Months Insurance [employer] CHOICE Care Teams Furniture Removalist Relationship Specialty Start Date End Date Heath Aleman PA [address] [facility] [address] [place] [address] PCP - General Emergency Medicine 06/02/24
--- OUTSIDE RECORDS SUMMARY | 2025-01-23 16:31 | XMS_ITS | Clinical Summary ---
Author Organization [facility] Address [address] [facility] [place] [address] Care Team Providers Care Publishing Specialist Name Role Phone Manjinder Dixon MD Unavailable [phone] Fabian Major MD Unavailable [phone] Garfield Starr MD Unavailable [phone] Heath Aleman PA-C Primary Care Provider Source Comments [facility],non-owned Affiliates and Associated Physician Practices is amultiple site organization consisting of ambulatory clinics and hospital sitesin [place], [place], [place] and [place]. This disclosure is being madepursuant to the Care Everywhere program and may not contain all information available regarding this patient. Last updated 18.[facility] Allergies Active Allergy Reactions Criticality Noted Date Comments Donald Inhibitors Cough 07/16/2019 Peanut-Derived Angioedema High 11/04/2019 Medications * Be aware that medications may not be up to date on this document. Alwaysverify current medications with the patient. [place]-3 Fatty Acids (FISH OIL PO) Take 1 [...] [address] [facility], [place] [phone] Wilma Salazar, RN Urinary Retention 01/10/2025 Refill [facility] - Urology [address] [place] [address] Kristen Goldberg APRN-FILLING OPERATOR Refill Request 12/10/2024 Refill [facility] [address] [place] [address] Kristen Goldberg WELL PULLER-FILLING OPERATOR Refill Request 12/08/2024 Travel 11/08/2024 Refill [facility] [address] [place] [address] Kristen Goldberg WELL PULLER-FILLING OPERATOR Refill Request from Last 3 Months Immunizations Immunization Administration Dates Next Due Covid [employer] primary monoval ent 12+ yr 0.3mL Purple [...] PM CDT Legal Sex Male 6:35 AM INSTRUCTOR DANCING Gender Identity Male 06/04/2021 7:34 PM CDT Sexual Orientation Straight 06/04/2021 7: 34 PM CDT Last Filed Vital Signs Vital Sign Reading Time Taken Comments Blood Pressure 130/74 10/21/2024 11:43 AM INSTRUCTOR DANCING Pulse 70 10/21/2024 11:43 AM INSTRUCTOR DANCING Temperature 37.1 C (98.7 F) 10/21/2024 11:43 AM INSTRUCTOR DANCING Respiratory Rate 16 04/21/2024 8:12 AM CDT Oxygen Saturation 93% 10/21/2024 11: 43 AM INSTRUCTOR DANCING Inhaled Oxygen Concentration - - Weight 109.5 kg (241 lb 6.4 oz) 025 11:43 AM INSTRUCTOR DANCING Height 175.3 cm (5' 9 ) 10/21/2024 11:4 3 AM INSTRUCTOR DANCING Body Mass Index 35.65 10/21/2024 11:43 AM INSTRUCTOR DANCING Plan of Treatment Upcoming Encounters Date Type Department Care Team (Late st Contact Info) Description 01/28/2025 10:30 AM CDT Office Visit [facility] - Urology [address] [facility] [address] [place] [address] Kristen Goldberg WELL PULLER-FILLING OPERATOR [facility] [place] [place] [address] 01/28/2025 3:00 PM CDT [facility] [address], [place] [phone] Bina Luque APRN-FILLING OPERATOR [address] [place] [phone] 06/29/2025 10:30 AM CDT Office Visit [facility] - Urology [address] [facility] [address] [place] [phone] Kristen Goldberg, WELL PULLER-FILLING OPERATOR [address] [facility] [place] [address] Health Maintenance Due Date Last Done Comments [...] ENDOSCOPY, COLON, SCREENING Routine 10/02/2020 7:38 AM INSTRUCTOR DANCING from Last 3 Months or Most Recently Relevant to Health Maintenance Results * US AAA SCREENING (05/30/2023 9:45 AM CDT) Anatomical Region Laterality Modality Abdomen Ultrasound 05/30/2023 9:29 AM CDT Impressions 05/30/2023 10:56 AM CDT IMPRESSION: No evidence of abdominal aortic aneurysm. > Dictated by Connie Claros MD (certified residential medication aide). IStephan have personally reviewed and interpreted this [...] aneurysm. > Dictated by Connie Claros MD (certified residential medication aide). I, Stephan Bragg have personally reviewed and [...] 46 U/L [facility] Comment: Test Performed at: [facility] [address] [facility] [place] [address] SELWYN MCKENZIE MD Blood BLOOD SPECIMEN / Unknown 05/21/2023 9:52 AM CDT 05/21/2023 9:55 AM CDT Heath Aleman PA-C LAB - CHEMISTRY ORDERA BLES Final Result Performing Organization Address [facility] de Phone Number [facility] [address] [place] [address] * HEPATITIS C AB W/RFLX TO HCV RNA QN PCR (04/18/2021 3:37 PM CDT) Hepatitis C Antibody NON-REACTI VE NON-REACT [facility] Signal to Cut-Off 0.02 <1.00 [facility] Comment: HCV antibody was non-reactive. There is no laboratory evidence of HCV infection. In most cases, no further action is required. However, if recent HCV exposure is suspected, a test for HCV RNA (test code 80298) is suggested. For additional information please refer to http://education.Xoomsys/faq/UYR96d0 (This link is being provided for informational/ educational purposes only.) REPORT COMMENT: FASTING:YES Test Performed at: [facility] [address] [place] [address] KANG LAYTON DO,MPH 04/18/2021 3:37 PM CDT 04/18/2021 3:38 PM CDT Heath Aleman PA-C LAB - CHEMISTRY ORDERA BLES Final Result Performing Organization Address [facility] Co de Phone Number [facility] [address] [place] [address] * ENDOSCOPY, COLON, SCREENING (10/02/2020 7:38 AM INSTRUCTOR DANCING) Report Endoscopy POC Endoscopy Department Report _ [...] bowel preparation was evaluated using the BBPS (Peerless Bowel Preparation Scale) with scores of: Right [...] Residual hemorrhoidal skin tags CPT copyright 2019 [employer]. All rights reserved. The codes documented in this report are preliminary and upon toll line mechanic review may be revised to meet current compliance requirements. Ramana Barry MD 10/02/2020 8:37:23 AM Note Initiated On: 10/02/2020 7:38 AM Number of Addenda: [address] [address] [facility] 10/02/2020 7:38 AM INSTRUCTOR DANCING us Ramana Barry MD GI PROCEDURE ORDERAB LES Edited Result - Final [facility] from Last 3 Months or Most Recently Relevant to Health Maintenance Care Teams Publishing Specialist Relationship Specialty Start Date End Date Heath Aleman PA-C [address] [facility] [address] [place] [phone] PCP - General 11/04/19 [place] [address] [place] [address] 05/03/10 Fabian Major MD 300 [facility] 402 [place] [address] 05/03/10 Garfield Starr MD [address] [place] [address] 05/03/10
--- OUTSIDE RECORDS SUMMARY | 2025-01-23 16:31 | XMS_ITS | Referral Summary ---
Author Organization [facility] Address [address] [place] [address] Care Team Providers Care Structural Shop Helper Name Role Phone Heath Aleman Primary Care Provider [phone] Encounters Date Type Department Care Team Description 01/19/2025 Orders Only [facility] Neurosurgery [address] [place] [address] [address] [place] [phone] Narayna Mims MD Spinal stenosis of lumbar region with neurogenic claudication 01/19/2025 Orders Only [facility] Neurosurgery [address] [place] [address] [address] [place] [phone] Narayan Mims MD Spinal stenosis of lumbar region with neurogenic claudication (Primary Dx) 01/19/2025 2:40 PM CDT Office Visit [facility] Neurosurgery [address] [place] [address] Office [facility] [address] [address] Narayan Mims MD Spinal stenosis of lumbar region with neurogenic claudication (Primary Dx) 01/12/2025 11:00 AM CDT - 01/12/2025 11:59 PM CDT Hospital Encounter [facility] Rad[facility] [address] [place] [phone] Left knee pain, unspecified chronicity Discharge Disposition: Discharge to home or self care 01/12/2025 11:30 AM CDT Office Visit [facility] Orthopaedic Surgery [address] [place] [address] Office [facility] [address] [phone] Federico Coelho MD Left knee pain, unspecified chronicity (Primary Dx); Hip pain, bilateral; Chronic pain of left knee; Primary osteoarthritis of left knee from Last 3 Months Allergies Active Allergy Reactions Criticality Noted Date Comments Donald Inhibitors Cough Low 07/16/2019 Peanut Medications famotidine (PEPCID) oral suspension 40 mg/5 mL Take 1 tablet by mouth as directed Active qoiginwi-ujq-eig anatoliy sulfate 4.5 mg iron powder in [...] on file Legal Sex Male 4:30 AM ACTIVITY LEADER Gender Identity Male 02/19/2024 3:53 AM CDT Sexual Orientation Straight 02/19/2024 3: 53 AM CDT Last Filed Vital Signs Vital Sign Reading Time Taken Comments Blood Pressure 146/81 09/07/2024 1:46 PM ACTIVITY LEADER Pulse 59 09/07/2024 1:46 PM ACTIVITY LEADER Temperature 36.5 C (97.7 F) 09/07/2024 12:33 PM ACTIVITY LEADER Respiratory Rate 18 09/07/2024 1:46 PM ACTIVITY LEADER Oxygen Saturation 96% 09/07/2024 1:46 PM ACTIVITY LEADER Inhaled Oxygen Concentration - - Weight 108.9 kg (240 lb) 01/19/2025 2:48 PM CDT Height 175.3 cm (5' 9 ) 01/19/2025 2:48 PM CDT Body Mass Index 35.44 01/19/2025 2:48 PM CDT Plan of Treatment Not on file Goals Goal Patient Goal Type Associated Problems Recent Progress Patient-Stated? Author CCM Chronic Pain Care Plan Chronic Care Management No change(09/07 12:35 PM ACTIVITY LEADER) Mendy Alfaro RN Note: Problem: Chronic Pain [...] ACCESS CHOICE ANTHEM ACCESS CHOICE Care Teams Structural Shop Helper Relationship Specialty Start Date End Date Heath Aleman PA [address] [place] [address] PCP - General Emergency Medicine 06/02/24
[2025-01-23 16:55] VITALS: BP 147/75; PULSE 66; RESP 18; O2SAT 97
== END 2025-01-23 16:58 | disposition home or self-care (01) ==
PROVIDERS: Emergency Provider Emergency Medicine
DX: T83.098A Other mechanical complication of other urinary catheter, initial encounter (principal); R33.9 Retention of urine, unspecified; E78.2 Mixed hyperlipidemia; I10 Essential (primary) hypertension; Z87.891 Personal history of nicotine dependence
CPT/HCPCS: 81001; 99283